=== PATIENT | male | born 1965 | race Caucasian/White ===

== ENCOUNTER 2016-11-22 01:05 | Inpatient (IN) | payer OTHER ==
[~2016-11-22] VITALS: Ht 180.3 cm; Wt 93.9 kg
[2016-11-22] VITALS (7 sets, daily range): BP systolic 126–158
[2016-11-22] MEDS ORDERED: MORPHINE 2 MG/ML INJ. SYRINGE IVP ONE (01:15)
[2016-11-22] MEDS ORDERED: FOLIC ACID 1 MG, THIAMINE HCL 100 MG, MAGNESIUM SULFATE 1 GM, MVI 10 ML in NACL 0.9% 1,... IV ONE (01:15)
[2016-11-22] MEDS ORDERED: ONDANSETRON HCL 4 MG/2 ML VIAL IVP ONE (01:15)
[2016-11-22] MEDS ORDERED: THIAMINE HCL 100 MG/ML VIAL ONE (01:17)
[2016-11-22] MEDS ORDERED: MAGNESIUM SULFATE 1 GM/2 ML VIAL ONE (01:17)
[2016-11-22] MEDS ORDERED: MVI 10 ML VIAL IV ONE (01:17)
[2016-11-22 01:36] LABS: BASOPHILS % (AUTO) 0.7 % (0.0-2.0); EOSINOPHILS # (AUTO) 0.2 K/uL (0.0-0.4); EOSINOPHILS % (AUTO) 3.4 % (0.0-4.0); HEMATOCRIT 48.7 % (36-54); HEMOGLOBIN 15.3 g/dL (14.0-18.0); LYMPHOCYTES # (AUTO) 2.2 K/uL (1.0-5.5); MEAN CORPUSCULAR HEMOGLOBIN 25 pg (27-31); MEAN CORPUSCULAR HGB CONC 31 % (32-36); MEAN CORPUSCULAR VOLUME 80 fL (79.0-98.0); MONOCYTES # (AUTO) 0.5 K/uL (0.0-1.0); MONOCYTES % (AUTO) 7.4 % (1.7-9.3); NEUTROPHILS # (AUTO) 3.5 K/uL (1.8-7.7); NEUTROPHILS % (AUTO) 54.5 % (40.0-70.0); PLATELET COUNT (AUTO) 200 K/uL (130-430); RED BLOOD CELL COUNT(AUTO) 6.13 MIL/uL (4.2-6.2); WHITE BLOOD COUNT (AUTO) 6.4 K/uL (4.8-10.8)
[2016-11-22 02:06] LABS: SODIUM SERUM 128 mmol/L (136-145)
[2016-11-22 02:07] LABS: ANION GAP 11 (5-15); CALCIUM 9.5 mg/dL (8.4-11.0); CHLORIDE 93 mmol/L (98-107); CREATININE 0.75 mg/dL (0.55-1.30); GFR AFRICAN AMERICAN 141 mL/min (>90); GLUCOSE 112 mg/dL (70-99); POTASSIUM 3.8 mmol/L (3.5-5.1); UREA NITROGEN, BLOOD 9 mg/dL (8-21)
[2016-11-22 02:08] LABS: ALANINE AMINOTRANSFERASE 30 U/L (12-78); ALBUMIN 4.2 g/dL (3.4-4.8); ASPARTATE AMINOTRANSFERASE 27 U/L (10-37); TOTAL BILIRUBIN 0.5 mg/dL (0.0-1.0)
[2016-11-22 02:09] LABS: ACETAMINOPHEN < 1 ug/mL (1-30)
[2016-11-22 02:22] LABS: ALCOHOL, BLOOD 208 mg/dL (<10)
[2016-11-22 02:36] LABS: INR 0.9 (0.80-1.20); PROTHROMBIN TIME 9.4 SECS (9.5-12.5)
[2016-11-22 02:41] LABS: BARBITURATE, URINE NEGATIVE (NEG <=200); BENZODIAZEPINE, URINE NEGATIVE (NEG <=150); CANNABINOID, URINE NEGATIVE (NEG <=50); COCAINE, URINE NEGATIVE (NEG <=150); METHAMPHETAMINES SCREEN,URINE NEGATIVE (NEG <=500); OPIATE, URINE POSITIVE (NEG <=100); PHENCYCLIDINE SCREEN,URINE NEGATIVE (NEG <=25); URINE AMPHETAMINE NEGATIVE (NEG <=500); URINE METHADONE NEGATIVE (NEG <=200); URINE OXYCODONE SCREEN NEGATIVE (NEG <=100); URINE PROPOXYPHENE SCREEN NEGATIVE (NEG <=300)
[2016-11-22 02:42] LABS: UR TRICYCLIC ANTIDEPRESSANTS NEGATIVE (NEG <=300)
[2016-11-22] MEDS ORDERED: LORazepam 2 MG/ML VIAL (FOR ER USE) IVP ONE (02:45)
[2016-11-22] MEDS ORDERED: LISI-600 PO (03:00)
[2016-11-22] MEDS ORDERED: FLU VACC QS 2017-18(36MOS+)/PF 0.5 ML/SYR SYRINGE I.M. PRN (04:45)
[2016-11-22] MEDS ORDERED: ACETAMINOPHEN 325 MG TABLET PO PRN (06:00)
[2016-11-22] MEDS ORDERED: ONDANSETRON HCL 4 MG/2 ML VIAL IVP PRN (06:00)
[2016-11-22] MEDS: NACL 0.9% 1,000 ML IV SCH ×2 (06:13→20:42)
[2016-11-22] MEDS: MORPHINE 2 MG/ML INJ. SYRINGE IVP PRN ×4 (06:25→19:00)
[2016-11-22 07:02] LABS: BILIRUBIN,URINE NEGATIVE (NEGATIVE); BLOOD, URINE NEGATIVE (NEGATIVE); CLARITY/URINE CLEAR (CLEAR); COLOR,URINE YELLOW (YELLOW); GLUCOSE,URINE NEGATIVE (NEGATIVE); KETONES,URINE NEGATIVE (NEGATIVE); LEUKOCYTE ESTERASE ,URINE NEGATIVE (NEGATIVE); NITRITE, URINE NEGATIVE (NEGATIVE); PH,URINE 6.5 (5.0-8.0); PROTEIN URINE NEGATIVE (NEGATIVE); UROBILINOGEN,URINE 0.2 (0.2-1.0)
[2016-11-22 07:18] LABS: FREE T4 (FREE THYROXINE) 0.9 ng/dL (0.6-1.6); PHOSPHORUS 4.5 mg/dL (2.7-4.5); THYROID STIMULATING HORMONE 0.84 uIu/mL (0.34-4.82)
[2016-11-22] MEDS: DOCUSATE SODIUM 100 MG CAPSULE PO SCH ×2 (09:45→20:40)
[2016-11-22] MEDS ORDERED: LORazepam 2 MG/ML VIAL IVP PRN (11:45)
[2016-11-22] MEDS: LORazepam 1 MG TABLET PO SCH ×2 (12:15→20:35)
[2016-11-22] MEDS ORDERED: PANTOPRAZOLE SODIUM 40 MG/VIAL (PROTONIX) IVP ONE (12:45)
[2016-11-22 17:06] LABS: BARBITURATE, URINE NEGATIVE (NEG <=200); BENZODIAZEPINE, URINE POSITIVE (NEG <=150); CANNABINOID, URINE NEGATIVE (NEG <=50); COCAINE, URINE NEGATIVE (NEG <=150); METHAMPHETAMINES SCREEN,URINE NEGATIVE (NEG <=500); OPIATE, URINE POSITIVE (NEG <=100); PHENCYCLIDINE SCREEN,URINE NEGATIVE (NEG <=25); UR TRICYCLIC ANTIDEPRESSANTS NEGATIVE (NEG <=300); URINE AMPHETAMINE NEGATIVE (NEG <=500); URINE METHADONE NEGATIVE (NEG <=200); URINE OXYCODONE SCREEN NEGATIVE (NEG <=100); URINE PROPOXYPHENE SCREEN NEGATIVE (NEG <=300)
[2016-11-23] VITALS: BP_SYST 131
[2016-11-23] MEDS: MORPHINE 2 MG/ML INJ. SYRINGE IVP PRN ×2 (00:20→09:25)
[2016-11-23] MEDS: NACL 0.9% 1,000 ML IV SCH (04:40)
[2016-11-23] MEDS: LORazepam 1 MG TABLET PO SCH (04:43)
[2016-11-23 04:44] VITALS: BP_SYST 119
[2016-11-23 06:25] LABS: BASOPHILS % (AUTO) 0.5 % (0.0-2.0); EOSINOPHILS # (AUTO) 0.3 K/uL (0.0-0.4); EOSINOPHILS % (AUTO) 4.6 % (0.0-4.0); HEMATOCRIT 41.5 % (36-54); HEMOGLOBIN 13.7 g/dL (14.0-18.0); LYMPHOCYTES # (AUTO) 1.4 K/uL (1.0-5.5); MEAN CORPUSCULAR HEMOGLOBIN 26 pg (27-31); MEAN CORPUSCULAR HGB CONC 33 % (32-36); MEAN CORPUSCULAR VOLUME 79 fL (79.0-98.0); MONOCYTES # (AUTO) 0.4 K/uL (0.0-1.0); MONOCYTES % (AUTO) 6.4 % (1.7-9.3); NEUTROPHILS # (AUTO) 3.6 K/uL (1.8-7.7); NEUTROPHILS % (AUTO) 64.5 % (40.0-70.0); PLATELET COUNT (AUTO) 153 K/uL (130-430); RED BLOOD CELL COUNT(AUTO) 5.22 MIL/uL (4.2-6.2); RED CELL DISTRIBUTION WIDTH 15.1 % (9.0-15.0); WHITE BLOOD COUNT (AUTO) 5.7 K/uL (4.8-10.8)
[2016-11-23 06:49] LABS: ALBUMIN 3.4 g/dL (3.4-4.8); CALCIUM 9.1 mg/dL (8.4-11.0); CREATININE 0.86 mg/dL (0.55-1.30); TOTAL BILIRUBIN 0.8 mg/dL (0.0-1.0)
[2016-11-23 08:16] LABS: T4 (THYROXINE) 7.2 ug/dL (4.5-12.0)
[2016-11-23] MEDS ORDERED: PANTOPRAZOLE SODIUM 40 MG/VIAL (PROTONIX) IVP SCH (09:00)
[2016-11-23] MEDS ORDERED: LISINOPRIL 20 MG TABLET PO SCH (09:00)
[2016-11-23] MEDS: DOCUSATE SODIUM 100 MG CAPSULE PO SCH (09:13)
[2016-11-23 09:17] VITALS: BP_SYST 113
[2016-11-23] MEDS ORDERED: PRO40 PO (09:35)
[2016-11-23 10:00] LABS: HEMOGLOBIN A1C 5.8 % (4.8-5.6)
[2016-11-23 11:30] VITALS: BP_SYST 133
[2016-11-23 14:08] VITALS: BP_SYST 133
[2016-11-24 07:06] LABS: HEPATITIS A AB, IgM Negative (Negative); HEPATITIS B CORE AB, IgM Negative (Negative); HEPATITIS B SURFACE AG Negative (Negative)
== END 2016-11-23 14:26 | disposition home or self-care (01) | DRG 241 ==
LOC: SED 01:05 → STU 03:30 → SMU 13:12
PROVIDERS: ADMIT Family Medicine; ATTEND Family Medicine
DX: K29.20 Alcoholic gastritis without bleeding (principal); E87.1 Hypo-osmolality and hyponatremia; F10.239 Alcohol dependence with withdrawal, unspecified; K21.9 Gastro-esophageal reflux disease without esophagitis; F10.129 Alcohol abuse with intoxication, unspecified; Y90.9 Presence of alcohol in blood, level not specified; Z79.899 Other long term (current) drug therapy
CPT/HCPCS: 36415; 71010; 74020-TC; 76700-TC; 80053; 80061; 80074; 80307; 81003; 82140-TC; 82150-TC; 83036; 83690-TC; 83735-TC; 83880; 84100-TC; 84436; 84439; 84443-TC; 84479; 85025; 85610-TC; 85730-TC; 93005; 96365; 96366; 96375; 99285; C9113; G0480; G0481; G0482; J2060; J2270; J2405; J3411; J3475; J7030; Q2037

== ENCOUNTER 2017-03-04 19:12 | Inpatient (IN) | payer OTHER ==
[~2017-03-04] VITALS: Ht 185.4 cm; Wt 90.7 kg
[~2017-03-04 19:12] MED LIST: CHLO5CAP3 PO; FAMO20TA8 PO; HYDR-4100 PO; LIB10 PO; LISI-652 PO; MULT PO; NOR10 PO; THIA100T13 PO
[2017-03-04 19:24] VITALS: BP_SYST 149
[2017-03-04 20:24] LABS: CALCIUM 9.1 mg/dL (8.4-11.0); CREATININE 1.06 mg/dL (0.55-1.30)
[2017-03-04 20:25] LABS: BILIRUBIN,URINE NEGATIVE (NEGATIVE); BLOOD, URINE NEGATIVE (NEGATIVE); CLARITY/URINE CLEAR (CLEAR); COLOR,URINE YELLOW (YELLOW); GLUCOSE,URINE NEGATIVE (NEGATIVE); KETONES,URINE NEGATIVE (NEGATIVE); LEUKOCYTE ESTERASE ,URINE NEGATIVE (NEGATIVE); NITRITE, URINE NEGATIVE (NEGATIVE); PH,URINE 5.5 (5.0-8.0); PROTEIN URINE NEGATIVE (NEGATIVE); UROBILINOGEN,URINE 0.2 (0.2-1.0)
[2017-03-04 20:27] LABS: ALBUMIN 4.2 g/dL (3.4-4.8); TOTAL BILIRUBIN 0.2 mg/dL (0.0-1.0)
[2017-03-04 20:29] LABS: BASOPHILS % (AUTO) 0.4 % (0.0-2.0); EOSINOPHILS # (AUTO) 0.2 K/uL (0.0-0.4); EOSINOPHILS % (AUTO) 3.2 % (0.0-4.0); HEMATOCRIT 42.3 % (36-54); HEMOGLOBIN 13.9 g/dL (14.0-18.0); LYMPHOCYTES # (AUTO) 1.8 K/uL (1.0-5.5); LYMPHOCYTES % (AUTO) 28.4 % (20.5-51.5); MEAN CORPUSCULAR HEMOGLOBIN 27 pg (27-31); MEAN CORPUSCULAR HGB CONC 33 % (32-36); MEAN CORPUSCULAR VOLUME 81 fL (79.0-98.0); MONOCYTES # (AUTO) 0.6 K/uL (0.0-1.0); MONOCYTES % (AUTO) 9.4 % (1.7-9.3); NEUTROPHILS # (AUTO) 3.9 K/uL (1.8-7.7); NEUTROPHILS % (AUTO) 58.6 % (40.0-70.0); PLATELET COUNT (AUTO) 216 K/uL (130-430); RED BLOOD CELL COUNT(AUTO) 5.22 MIL/uL (4.2-6.2); RED CELL DISTRIBUTION WIDTH 14.3 % (9.0-15.0); WHITE BLOOD COUNT (AUTO) 6.5 K/uL (4.8-10.8)
[2017-03-04] MEDS ORDERED: NACL 0.9% 1,000 ML IV ONE (20:46)
[2017-03-04] MEDS ORDERED: DIPHENHYDRAMINE INJ 50 MG/ML VIAL IVP ONE (21:00)
[2017-03-04] MEDS ORDERED: ONDANSETRON HCL 4 MG/2 ML VIAL IVP ONE (21:00)
[2017-03-04] MEDS ORDERED: HYDROmorphone 1 MG INJ. 1 MG/ML AMPUL IVP ONE (21:00)
[2017-03-04] MEDS ORDERED: PANTOPRAZOLE SODIUM 40 MG/VIAL (PROTONIX) IVP ONE (21:00)
[2017-03-04 21:02] LABS: LIPASE 366 U/L (73-393)
[2017-03-04 21:06] LABS: INR 0.9 (0.80-1.20); PROTHROMBIN TIME 9.2 SECS (9.5-12.5)
[2017-03-04 21:06] LABS: BARBITURATE, URINE NEGATIVE (NEG <=200); BENZODIAZEPINE, URINE POSITIVE (NEG <=150); CANNABINOID, URINE NEGATIVE (NEG <=50); COCAINE, URINE NEGATIVE (NEG <=150); METHAMPHETAMINES SCREEN,URINE NEGATIVE (NEG <=500); OPIATE, URINE POSITIVE (NEG <=100); PHENCYCLIDINE SCREEN,URINE NEGATIVE (NEG <=25); UR TRICYCLIC ANTIDEPRESSANTS NEGATIVE (NEG <=300); URINE AMPHETAMINE NEGATIVE (NEG <=500); URINE METHADONE NEGATIVE (NEG <=200); URINE OXYCODONE SCREEN NEGATIVE (NEG <=100); URINE PROPOXYPHENE SCREEN NEGATIVE (NEG <=300)
[2017-03-04 21:16] LABS: ALCOHOL, BLOOD 317 mg/dL (<10)
[2017-03-04] MEDS ORDERED: ONDANSETRON HCL 4 MG/2 ML VIAL ONE (21:32)
[2017-03-04] MEDS ORDERED: HYDROmorphone 1 MG INJ. 1 MG/ML AMPUL ONE (21:39)
[2017-03-04] MEDS ORDERED: FOLIC ACID 1 MG, THIAMINE HCL 100 MG, MAGNESIUM SULFATE 1 GM, MVI 10 ML in NACL 0.9% 1,... IV ONE (22:45)
[2017-03-04] MEDS ORDERED: ONDANSETRON HCL 4 MG/2 ML VIAL IVP PRN (22:45)
[2017-03-04] MEDS ORDERED: traMADol HCL HCL 50 MG TABLET (ULTRAM) PO PRN (22:45)
[2017-03-04 23:02] VITALS: BP_SYST 126
[2017-03-04 23:04] VITALS: BP_SYST 126
[2017-03-04] MEDS ORDERED: FOLIC ACID 5 MG/ML VIAL IV ONE (23:25)
[2017-03-04] MEDS ORDERED: MVI 10 ML VIAL IV ONE (23:25)
[2017-03-04] MEDS ORDERED: MAGNESIUM SULFATE 1 GM/2 ML VIAL ONE (23:25)
[2017-03-04] MEDS ORDERED: THIAMINE HCL 100 MG/ML VIAL ONE (23:25)
[2017-03-04] MEDS ORDERED: FAMOTIDINE PF 20 MG/2 ML VIAL IVP ONE (23:30)
[2017-03-04] MEDS: MORPHINE 2 MG/ML INJ. SYRINGE IVP PRN (23:45)
[2017-03-05] MEDS: LORazepam 2 MG/ML VIAL IVP PRN ×6 (03:56→22:48)
[2017-03-05] MEDS: MORPHINE 2 MG/ML INJ. SYRINGE IVP PRN ×5 (04:02→22:15)
[2017-03-05 06:26] LABS: BASOPHILS % (AUTO) 0.8 % (0.0-2.0); EOSINOPHILS # (AUTO) 0.2 K/uL (0.0-0.4); EOSINOPHILS % (AUTO) 4.8 % (0.0-4.0); HEMATOCRIT 37.4 % (36-54); HEMOGLOBIN 12.2 g/dL (14.0-18.0); LYMPHOCYTES # (AUTO) 1.9 K/uL (1.0-5.5); MEAN CORPUSCULAR HEMOGLOBIN 27 pg (27-31); MEAN CORPUSCULAR HGB CONC 33 % (32-36); MEAN CORPUSCULAR VOLUME 82 fL (79.0-98.0); MONOCYTES # (AUTO) 0.4 K/uL (0.0-1.0); MONOCYTES % (AUTO) 8.7 % (1.7-9.3); NEUTROPHILS # (AUTO) 1.6 K/uL (1.8-7.7); NEUTROPHILS % (AUTO) 39.7 % (40.0-70.0); PLATELET COUNT (AUTO) 160 K/uL (130-430); RED BLOOD CELL COUNT(AUTO) 4.56 MIL/uL (4.2-6.2); RED CELL DISTRIBUTION WIDTH 14.2 % (9.0-15.0); WHITE BLOOD COUNT (AUTO) 4.1 K/uL (4.8-10.8)
[2017-03-05 07:03] LABS: ALBUMIN 3.4 g/dL (3.4-4.8); CALCIUM 8.4 mg/dL (8.4-11.0); CREATININE 0.68 mg/dL (0.55-1.30); POTASSIUM 3.7 mmol/L (3.5-5.1); TOTAL BILIRUBIN 0.2 mg/dL (0.0-1.0)
[2017-03-05 08:58] VITALS: BP_SYST 152
[2017-03-05] MEDS ORDERED: HYDROcodone/ACETAMIN 10-325 MG TAB PO PRN (12:45)
[2017-03-05 12:59] VITALS: BP_SYST 143
[2017-03-05] MEDS ORDERED: amLODIPine BESYLATE 10 MG TABLET PO ONE (13:00)
[2017-03-05] MEDS: chlordiazePOXIDE HCL 10 MG CAPSULE PO SCH ×3 (15:00→20:21)
[2017-03-05 15:17] VITALS: BP_SYST 153
[2017-03-05 20:00] VITALS: BP_SYST 147
[2017-03-05] MEDS ORDERED: FAMOTIDINE PF 20 MG/2 ML VIAL IVP SCH (21:00)
[2017-03-06 00:48] VITALS: BP_SYST 142
[2017-03-06] MEDS: LORazepam 2 MG/ML VIAL IVP PRN ×7 (02:01→23:45)
[2017-03-06] MEDS: MORPHINE 2 MG/ML INJ. SYRINGE IVP PRN ×5 (02:02→21:26)
[2017-03-06 06:14] LABS: EOSINOPHILS # (AUTO) 0.3 K/uL (0.0-0.4); EOSINOPHILS % (AUTO) 6.2 % (0.0-4.0); HEMOGLOBIN 13.6 g/dL (14.0-18.0); LYMPHOCYTES # (AUTO) 1.6 K/uL (1.0-5.5); LYMPHOCYTES % (AUTO) 33.5 % (20.5-51.5); MEAN CORPUSCULAR HEMOGLOBIN 27 pg (27-31); MEAN CORPUSCULAR HGB CONC 33 % (32-36); MEAN CORPUSCULAR VOLUME 81 fL (79.0-98.0); MONOCYTES # (AUTO) 0.4 K/uL (0.0-1.0); MONOCYTES % (AUTO) 8.6 % (1.7-9.3); NEUTROPHILS # (AUTO) 2.5 K/uL (1.8-7.7); NEUTROPHILS % (AUTO) 50.7 % (40.0-70.0); PLATELET COUNT (AUTO) 169 K/uL (130-430); RED BLOOD CELL COUNT(AUTO) 5.04 MIL/uL (4.2-6.2); RED CELL DISTRIBUTION WIDTH 13.6 % (9.0-15.0); WHITE BLOOD COUNT (AUTO) 4.8 K/uL (4.8-10.8)
[2017-03-06 06:21] LABS: ALBUMIN 3.6 g/dL (3.4-4.8); CALCIUM 9.2 mg/dL (8.4-11.0); CREATININE 0.82 mg/dL (0.55-1.30); POTASSIUM 3.7 mmol/L (3.5-5.1); TOTAL BILIRUBIN 0.6 mg/dL (0.0-1.0)
[2017-03-06 08:39] VITALS: BP_SYST 146
[2017-03-06] MEDS: THIAMINE HCL 100 MG TABLET PO SCH (08:44)
[2017-03-06] MEDS: LISINOPRIL 5 MG TABLET PO SCH (08:44)
[2017-03-06] MEDS: chlordiazePOXIDE HCL 10 MG CAPSULE PO SCH ×4 (08:45→20:28)
[2017-03-06] MEDS: MULTIVITAMINS TAB 1 TABLET PO SCH (08:45)
[2017-03-06] MEDS: PANTOPRAZOLE SODIUM 40 MG TAB PO SCH (08:45)
[2017-03-06] MEDS: amLODIPine BESYLATE 10 MG TABLET PO SCH (08:45)
[2017-03-06 12:18] VITALS: BP_SYST 135
[2017-03-06 16:24] VITALS: BP_SYST 133
[2017-03-06 20:07] VITALS: BP_SYST 111
[2017-03-07 00:02] VITALS: BP_SYST 105
[2017-03-07] MEDS: LORazepam 2 MG/ML VIAL IVP PRN ×2 (05:23→08:42)
[2017-03-07] MEDS: MORPHINE 2 MG/ML INJ. SYRINGE IVP PRN (05:24)
[2017-03-07 08:04] VITALS: BP_SYST 107
[2017-03-07] MEDS: PANTOPRAZOLE SODIUM 40 MG TAB PO SCH (08:32)
[2017-03-07] MEDS: THIAMINE HCL 100 MG TABLET PO SCH (08:33)
[2017-03-07] MEDS: MULTIVITAMINS TAB 1 TABLET PO SCH (08:33)
[2017-03-07] MEDS: LISINOPRIL 5 MG TABLET PO SCH (08:34)
[2017-03-07] MEDS: amLODIPine BESYLATE 10 MG TABLET PO SCH (08:35)
[2017-03-07] MEDS: chlordiazePOXIDE HCL 10 MG CAPSULE PO SCH ×2 (09:00→15:00)
[2017-03-07 12:31] VITALS: BP_SYST 111
[2017-03-07 15:28] VITALS: BP_SYST 115
[2017-03-07 17:27] VITALS: BP_SYST 115
== END 2017-03-07 17:58 | disposition home or self-care (01) | DRG 241 ==
LOC: SED 19:12 → STU 22:38 → SMU 03-06 15:57
PROVIDERS: ADMIT Internal Medicine; ATTEND Internal Medicine
DX: K29.20 Alcoholic gastritis without bleeding (principal); I10 Essential (primary) hypertension; F32.9 Major depressive disorder, single episode, unspecified; F41.9 Anxiety disorder, unspecified; F10.229 Alcohol dependence with intoxication, unspecified; Z59.0 Homelessness; Z79.899 Other long term (current) drug therapy
CPT/HCPCS: 36415; 80053; 80307; 81003; 82150-TC; 83605; 83690-TC; 85025; 85610-TC; 87040-TC; 87081; 96361; 96374; 96375; 99285; C9113; G0482; J1170; J1200; J2060; J2270; J2405; J3411; J3475; J3490; J7030

== ENCOUNTER 2018-06-11 20:16 | Emergency (ER) | payer MEDICAID ==
[~2018-06-11] VITALS: Ht 180.3 cm; Wt 92.5 kg
[~2018-06-11 20:16] MED LIST changes: -CHLO5CAP3 PO; -FAMO20TA8 PO; +FOLI-43 PO; -HYDR-4100 PO; +LISI-600 PO; -LISI-652 PO; -MULT PO; -NOR10 PO; +PRO40 PO
--- NOTE | 2018-06-11 20:29 | NUR ---
Patient to ER bed 6 to gown for evaluation. Side rails up.
--- NOTE | 2018-06-11 20:30 | NUR ---
Patient arrived from home aaox4 and able to verbalize his needs. Complaints of right upper quadrant abdominal pain radiating up to his right jaw. Complaints of N/V and anxiety. Patient states he's been drinking about 30 beer cans a day for the past 4 weeks. Able to ambulate with a steady gait.
[2018-06-11] MEDS ORDERED: NACL 0.9% 1,000 ML IV ONE ×2 (20:46→22:45)
[2018-06-11 20:49] VITALS: BP_SYST 150
--- NOTE | 2018-06-11 20:50 | NUR ---
ER at bedside examining patient.
[2018-06-11] MEDS ORDERED: LORazepam 2 MG/ML VIAL (FOR ER USE) IVP ONE (21:00)
[2018-06-11] MEDS ORDERED: MORPHINE 4 MG/ML INJ. SYRINGE IM ONE (21:00)
[2018-06-11] MEDS ORDERED: ONDANSETRON HCL 4 MG/2 ML VIAL IVP ONE (21:00)
--- NOTE | 2018-06-11 21:05 | NUR ---
# 20 gauge angiocath placed to LEFT AC. Use of asceptic technique. Opsite placed over site. Blood return noted. Blood for lab drawn from site. Flushed with 10 cc of normal saline. No evidence of infiltration noted. Patient tolerated well.
--- NOTE | 2018-06-11 21:15 | NUR ---
Urine specimen collected and sent to lab
[2018-06-11 21:25] LABS: BILIRUBIN,URINE NEGATIVE (NEGATIVE); BLOOD, URINE NEGATIVE (NEGATIVE); CLARITY/URINE CLEAR (CLEAR); COLOR,URINE YELLOW (YELLOW); GLUCOSE,URINE NEGATIVE (NEGATIVE); KETONES,URINE NEGATIVE (NEGATIVE); LEUKOCYTE ESTERASE ,URINE NEGATIVE (NEGATIVE); NITRITE, URINE NEGATIVE (NEGATIVE); PROTEIN URINE NEGATIVE (NEGATIVE); UROBILINOGEN,URINE 0.2 (0.2-1.0)
[2018-06-11 21:27] LABS: BASOPHILS # (AUTO) 0.1 K/uL (0.0-0.2); BASOPHILS % (AUTO) 1.3 % (0.0-2.0); EOSINOPHILS # (AUTO) 0.1 K/uL (0.0-0.4); EOSINOPHILS % (AUTO) 1.4 % (0.0-4.0); HEMOGLOBIN 14.1 g/dL (14.0-18.0); LYMPHOCYTES # (AUTO) 1.2 K/uL (1.0-5.5); LYMPHOCYTES % (AUTO) 27.4 % (20.5-51.5); MEAN CORPUSCULAR HEMOGLOBIN 27 pg (27-31); MEAN CORPUSCULAR HGB CONC 33 % (32-36); MEAN CORPUSCULAR VOLUME 82 fL (79.0-98.0); MONOCYTES # (AUTO) 0.6 K/uL (0.0-1.0); NEUTROPHILS # (AUTO) 2.3 K/uL (1.8-7.7); NEUTROPHILS % (AUTO) 54.9 % (40.0-70.0); PLATELET COUNT (AUTO) 213 K/uL (130-430); RED BLOOD CELL COUNT(AUTO) 5.24 MIL/uL (4.2-6.2); RED CELL DISTRIBUTION WIDTH 14.7 % (9.0-15.0); WHITE BLOOD COUNT (AUTO) 4.3 K/uL (4.8-10.8)
[2018-06-11 21:31] LABS: CALCIUM 8.9 mg/dL (8.4-11.0); CREATININE 0.79 mg/dL (0.55-1.30); POTASSIUM 3.6 mmol/L (3.5-5.1)
[2018-06-11 21:35] LABS: BARBITURATE, URINE NEGATIVE (NEG <=200); BENZODIAZEPINE, URINE POSITIVE (NEG <=150); CANNABINOID, URINE NEGATIVE (NEG <=50); COCAINE, URINE NEGATIVE (NEG <=150); METHAMPHETAMINES SCREEN,URINE NEGATIVE (NEG <=500); OPIATE, URINE NEGATIVE (NEG <=100); PHENCYCLIDINE SCREEN,URINE NEGATIVE (NEG <=25); UR TRICYCLIC ANTIDEPRESSANTS NEGATIVE (NEG <=300); URINE AMPHETAMINE NEGATIVE (NEG <=500); URINE METHADONE NEGATIVE (NEG <=200); URINE OXYCODONE SCREEN NEGATIVE (NEG <=100); URINE PROPOXYPHENE SCREEN NEGATIVE (NEG <=300)
[2018-06-11 21:35] LABS: ALBUMIN 3.7 g/dL (3.4-4.8); TOTAL BILIRUBIN 0.5 mg/dL (0.0-1.0)
--- NOTE | 2018-06-11 21:49 | NUR ---
Patient is asleep in bed. Cardiac monitoring is active.
[2018-06-12] MEDS ORDERED: LORazepam 2 MG/ML VIAL (FOR ER USE) IVP ONE (02:30)
--- NOTE | 2018-06-12 02:47 | NUR ---
0247 - Pt gave name of sister for contact to pick him up. Chani Edwards [phone]
--- NOTE | 2018-06-12 03:10 | NUR ---
Patients sister (Chain) [phone], but no answer. Voicemail left for return call.
--- NOTE | 2018-06-12 03:30 | NUR ---
Patients sister called but no answer. Message left.
--- NOTE | 2018-06-12 03:57 | NUR ---
Patient in bed asleep. Easily awoken. No appearance of pain or respiratory distress.
--- NOTE | 2018-06-12 04:38 | NUR ---
0438 - Called pt's sister again, no answer.
--- NOTE | 2018-06-12 06:08 | NUR ---
0608 - Patient given written and verbal discharge instructions and verbalizes understanding. ER MD discussed with patient the results and treatment provided. Patient in stable condition. ID arm band removed. IV catheter removed intact and dressing applied, no active bleeding. Rx of librium given. Patient educated on pain management and to follow up with PMD. Pain Scale 4. Opportunity for questions provided and answered. Medication side effect fact sheet provided.
[2018-06-12 06:11] VITALS: BP_SYST 148
== END 2018-06-12 06:08 | disposition home or self-care (01) ==
LOC: SED 20:16
DX: F10.129 Alcohol abuse with intoxication, unspecified (principal); I10 Essential (primary) hypertension; F41.9 Anxiety disorder, unspecified; Z79.899 Other long term (current) drug therapy; Y90.7 Blood alcohol level of 200-239 mg/100 ml
CPT/HCPCS: 36415; 80053; 80307; 81003; 82150; 83690; 85025; 85730; 96361; 96372; 96374; 96375; 96376; 99284; G0482; J2060 ×2; J2270; J2405; J7030

== ENCOUNTER 2018-06-13 13:16 | Emergency (ER) | payer MEDICAID ==
[~2018-06-13] VITALS: Ht 180.3 cm; Wt 92.5 kg
[2018-06-13 13:30] VITALS: BP_SYST 164
[2018-06-13] MEDS ORDERED: ONDANSETRON HCL 4 MG/2 ML VIAL IVP ONE (13:45)
[2018-06-13] MEDS ORDERED: NACL 0.9% 1,000 ML IV ONE (13:45)
[2018-06-13] MEDS ORDERED: PANTOPRAZOLE SODIUM 40 MG/VIAL (PROTONIX) IVP ONE (13:45)
[2018-06-13 13:57] LABS: BILIRUBIN,URINE NEGATIVE (NEGATIVE); BLOOD, URINE NEGATIVE (NEGATIVE); CLARITY/URINE SL HAZY (CLEAR); COLOR,URINE YELLOW (YELLOW); GLUCOSE,URINE NEGATIVE (NEGATIVE); KETONES,URINE NEGATIVE (NEGATIVE); LEUKOCYTE ESTERASE ,URINE NEGATIVE (NEGATIVE); NITRITE, URINE NEGATIVE (NEGATIVE); PH,URINE 6.5 (5.0-8.0); PROTEIN URINE NEGATIVE (NEGATIVE); UROBILINOGEN,URINE 0.2 (0.2-1.0)
[2018-06-13 14:04] LABS: BASOPHILS % (AUTO) 0.7 % (0.0-2.0); EOSINOPHILS # (AUTO) 0.1 K/uL (0.0-0.4); EOSINOPHILS % (AUTO) 1.9 % (0.0-4.0); HEMATOCRIT 41.6 % (36-54); HEMOGLOBIN 13.8 g/dL (14.0-18.0); LYMPHOCYTES # (AUTO) 1.1 K/uL (1.0-5.5); LYMPHOCYTES % (AUTO) 23.3 % (20.5-51.5); MEAN CORPUSCULAR HEMOGLOBIN 27 pg (27-31); MEAN CORPUSCULAR HGB CONC 33 % (32-36); MEAN CORPUSCULAR VOLUME 82 fL (79.0-98.0); MONOCYTES # (AUTO) 0.5 K/uL (0.0-1.0); MONOCYTES % (AUTO) 10.9 % (1.7-9.3); NEUTROPHILS % (AUTO) 63.2 % (40.0-70.0); PLATELET COUNT (AUTO) 203 K/uL (130-430); RED BLOOD CELL COUNT(AUTO) 5.08 MIL/uL (4.2-6.2); RED CELL DISTRIBUTION WIDTH 14.4 % (9.0-15.0); WHITE BLOOD COUNT (AUTO) 4.7 K/uL (4.8-10.8)
[2018-06-13 14:15] LABS: CALCIUM 8.6 mg/dL (8.4-11.0); CREATININE 0.81 mg/dL (0.55-1.30); POTASSIUM 3.6 mmol/L (3.5-5.1)
[2018-06-13 14:27] LABS: PROTHROMBIN TIME 10.2 SECS (9.5-12.5)
[2018-06-13 14:30] LABS: ALBUMIN 3.4 g/dL (3.4-4.8); TOTAL BILIRUBIN 0.4 mg/dL (0.0-1.0)
[2018-06-13] MEDS ORDERED: LORazepam 2 MG/ML VIAL (FOR ER USE) IVP ONE (14:45)
[2018-06-13 17:50] VITALS: BP_SYST 155
== END 2018-06-13 17:50 | disposition home or self-care (01) ==
LOC: SED 13:16
DX: K29.70 Gastritis, unspecified, without bleeding (principal); F10.10 Alcohol abuse, uncomplicated; R51 Headache; I10 Essential (primary) hypertension; F41.9 Anxiety disorder, unspecified; Z79.899 Other long term (current) drug therapy
CPT/HCPCS: 36415; 74176; 80053; 81003; 82150; 83605; 83615; 83690; 85025; 85610; 85730; 96361; 96374; 96375; 99284; C9113; J2060; J2405; J7030

== ENCOUNTER 2018-09-19 21:05 | Emergency (ER) | payer MEDICAID ==
[~2018-09-19] VITALS: Ht 180.3 cm; Wt 91.6 kg
[~2018-09-19 21:05] MED LIST changes: -FOLI-43 PO; -LIB10 PO; -PRO40 PO; -THIA100T13 PO
[2018-09-19 21:13] VITALS: BP_SYST 135
[2018-09-19 21:38] LABS: BASOPHILS # (AUTO) 0.1 K/uL (0.0-0.2); BASOPHILS % (AUTO) 1.8 % (0.0-2.0); EOSINOPHILS # (AUTO) 0.1 K/uL (0.0-0.4); EOSINOPHILS % (AUTO) 1.2 % (0.0-4.0); HEMATOCRIT 44.2 % (36-54); HEMOGLOBIN 14.7 g/dL (14.0-18.0); LYMPHOCYTES # (AUTO) 1.5 K/uL (1.0-5.5); LYMPHOCYTES % (AUTO) 35.1 % (20.5-51.5); MEAN CORPUSCULAR HEMOGLOBIN 27 pg (27-31); MEAN CORPUSCULAR HGB CONC 33 % (32-36); MEAN CORPUSCULAR VOLUME 82 fL (79.0-98.0); MONOCYTES # (AUTO) 0.4 K/uL (0.0-1.0); NEUTROPHILS # (AUTO) 2.2 K/uL (1.8-7.7); NEUTROPHILS % (AUTO) 52.9 % (40.0-70.0); PLATELET COUNT (AUTO) 232 K/uL (130-430); RED BLOOD CELL COUNT(AUTO) 5.37 MIL/uL (4.2-6.2); RED CELL DISTRIBUTION WIDTH 14.9 % (9.0-15.0); WHITE BLOOD COUNT (AUTO) 4.2 K/uL (4.8-10.8)
[2018-09-19 21:51] LABS: CALCIUM 9.2 mg/dL (8.4-11.0); CREATININE 0.95 mg/dL (0.55-1.30); POTASSIUM 4.5 mmol/L (3.5-5.1)
[2018-09-19 21:57] LABS: TOTAL BILIRUBIN 0.3 mg/dL (0.0-1.0)
== END 2018-09-20 01:59 | disposition left against medical advice (07) ==
LOC: SED 21:05
DX: F10.129 Alcohol abuse with intoxication, unspecified (principal); R10.9 Unspecified abdominal pain; R11.2 Nausea with vomiting, unspecified; Z53.21 Procedure and treatment not carried out due to patient leaving prior to being seen by health care provider
CPT/HCPCS: 36415; 80053; 83690; 85025; 99281; G0482

== ENCOUNTER 2018-10-28 20:00 | Emergency (ER) | payer MEDICAID ==
[~2018-10-28] VITALS: Ht 162.6 cm; Wt 93.0 kg
[2018-10-28 20:02] VITALS: BP_SYST 152
--- NOTE | 2018-10-28 20:03 | NUR ---
Placed in room 7 . Placed on sales operations assistant, blood pressure machine and pulse oximeter. To gown for exam. Side rails up. Report given to carlos WHITE.
--- NOTE | 2018-10-28 20:07 | NUR ---
Patient brought in complaining of diffuse abdominal pain worsening over the last 3 days with nausea. Patient reports binge drinking 40 beers today. Pain 10/10. Hx of pancreatitis. No other complaints/injuries per patient or as noted. Will continue to monitor.
[2018-10-28] MEDS ORDERED: ONDANSETRON HCL 4 MG/2 ML VIAL IVP ONE (20:15)
[2018-10-28] MEDS ORDERED: NACL 0.9% 1,000 ML IV ONE (20:15)
[2018-10-28] MEDS ORDERED: KETOROLAC TROMETHAMINE 30 MG VIAL IVP ONE (20:45)
[2018-10-28] MEDS ORDERED: MORPHINE 2 MG/ML INJ. SYRINGE IVP ONE (20:45)
[2018-10-28 20:49] LABS: BASOPHILS # (AUTO) 0.1 K/uL (0.0-0.2); BASOPHILS % (AUTO) 1.8 % (0.0-2.0); EOSINOPHILS # (AUTO) 0.1 K/uL (0.0-0.4); EOSINOPHILS % (AUTO) 3.6 % (0.0-4.0); HEMATOCRIT 43.6 % (36-54); HEMOGLOBIN 14.6 g/dL (14.0-18.0); LYMPHOCYTES # (AUTO) 1.5 K/uL (1.0-5.5); LYMPHOCYTES % (AUTO) 38.1 % (20.5-51.5); MEAN CORPUSCULAR HEMOGLOBIN 27 pg (27-31); MEAN CORPUSCULAR HGB CONC 34 % (32-36); MEAN CORPUSCULAR VOLUME 82 fL (79.0-98.0); MONOCYTES # (AUTO) 0.5 K/uL (0.0-1.0); MONOCYTES % (AUTO) 13.1 % (1.7-9.3); NEUTROPHILS # (AUTO) 1.8 K/uL (1.8-7.7); NEUTROPHILS % (AUTO) 43.4 % (40.0-70.0); PLATELET COUNT (AUTO) 225 K/uL (130-430); RED BLOOD CELL COUNT(AUTO) 5.33 MIL/uL (4.2-6.2); RED CELL DISTRIBUTION WIDTH 16.1 % (9.0-15.0)
--- NOTE | 2018-10-28 20:50 | NUR ---
patient getting out of bed. patient told to lay back down.
--- NOTE | 2018-10-28 20:50 | NUR ---
Medicated per MD orders.
[2018-10-28 20:53] LABS: ANION GAP 11 (5-15); CHLORIDE 104 mmol/L (98-107); CREATININE 0.68 mg/dL (0.55-1.30); GLUCOSE 117 mg/dL (70-99); POTASSIUM 3.8 mmol/L (3.5-5.1); SODIUM SERUM 143 mmol/L (136-145); UREA NITROGEN, BLOOD 6 mg/dL (8-21)
[2018-10-28 20:58] LABS: GFR AFRICAN AMERICAN 157 mL/min (>90)
[2018-10-28 21:00] LABS: ALANINE AMINOTRANSFERASE 27 U/L (12-78); ALCOHOL, BLOOD 342 mg/dL (<10); ASPARTATE AMINOTRANSFERASE 24 U/L (10-37); LIPASE 406 U/L (73-393)
[2018-10-28 21:12] LABS: TOTAL BILIRUBIN < 0.1 mg/dL (0.0-1.0)
--- NOTE | 2018-10-28 21:35 | NUR ---
Patient states he is very anxious and he is in a lot of pain. Patient is requesting Benzodiazepenes. Dr. Read at bedside explaining why patient can not have that particular medication at this time due to patient's high LUIS. Patient continues to get agitated. MD states he will give him ketamine for pain.
--- NOTE | 2018-10-28 22:00 | NUR ---
patient getting out of bed. patient stated "I'm calling [employer], I want to get out of here." reeducated patient on blood alcohol level and the need for resting it off. notified.
[2018-10-28] MEDS ORDERED: BANANA BAG 1 EA, MVI 10 ML, THIAMINE HCL 100 MG, FOLIC ACID 1 MG, MAGNESIUM SULFATE 1 G... IV ONE ×5 (22:15)
[2018-10-28] MEDS ORDERED: KETAMINE 30 MG/3 ML SYRINGE IVP ONE (22:15)
--- NOTE | 2018-10-28 22:23 | NUR ---
MD Read at bedside for IVP Ketamine for pain management. Patient placed on search engine marketing strategist. VSS Stable 145/95 BP; 99% on 4L NC; 102 HR; and RR 20. Patient stating, "Where am I?" Patient reassured he is in the hospital, and we are taking care of him.
--- NOTE | 2018-10-28 23:00 | NUR ---
Patient agitated at sitting at edge of bed. Patient states that he called [employer] to pick him up.
--- NOTE | 2018-10-28 23:00 | NUR ---
patient found at the end of bed. patient states he wants something for the pain. instructed patient to sit back into bed and try to relax.
[2018-10-28 23:03] LABS: BILIRUBIN,URINE NEGATIVE (NEGATIVE); BLOOD, URINE NEGATIVE (NEGATIVE); CLARITY/URINE CLEAR (CLEAR); COLOR,URINE YELLOW (YELLOW); GLUCOSE,URINE NEGATIVE (NEGATIVE); KETONES,URINE NEGATIVE (NEGATIVE); LEUKOCYTE ESTERASE ,URINE NEGATIVE (NEGATIVE); NITRITE, URINE NEGATIVE (NEGATIVE); PROTEIN URINE NEGATIVE (NEGATIVE); UROBILINOGEN,URINE 0.2 (0.2-1.0)
--- NOTE | 2018-10-28 23:12 | NUR ---
Patient pulled out IV. Walking with steady gait. Security called and followed patient out of ED.
--- NOTE | 2018-10-28 23:16 | NUR ---
[employer]'s department called informed patient eloped from ED and drove himself out of parking lot in mello sedan. KENDALL will send patrol in direction of Patient. Ty, fiber optics supervisor, also notified.
--- NOTE | 2018-10-28 23:19 | NUR ---
Richmond spencer in EDM - 10/28/18 at 2323 by [email or web address] Patient pulled out IV. Walking with steady gait. Security called and followed patient out of ED.
[2018-10-28] MEDS ORDERED: THIAMINE HCL 100 MG/ML VIAL ONE (23:29)
[2018-10-28] MEDS ORDERED: FOLIC ACID 5 MG/ML VIAL IV ONE (23:30)
== END 2018-10-28 23:16 | disposition left against medical advice (07) ==
LOC: SED 20:00
DX: F10.129 Alcohol abuse with intoxication, unspecified (principal); R10.13 Epigastric pain; F41.9 Anxiety disorder, unspecified; I10 Essential (primary) hypertension; Z53.20 Procedure and treatment not carried out because of patient's decision for unspecified reasons; Y90.8 Blood alcohol level of 240 mg/100 ml or more
CPT/HCPCS: 36415; 80053; 81003; 83690; 85025; 96361; 96374; 96375; 99283; G0482; J1885; J2270; J2405; J3411; J3475; J3490; J7030

== ENCOUNTER 2019-10-10 14:24 | Emergency (ER) | payer MEDICAID ==
[~2019-10-10] VITALS: Ht 175.3 cm; Wt 81.6 kg
[2019-10-10 14:24] VITALS: BP_SYST 157
[2019-10-10] MEDS ORDERED: METOCLOPRAMIDE HCL 10 MG/2 ML VIAL IVP ONE (14:45)
[2019-10-10] MEDS ORDERED: MAG-AL HYDROX/SIMETH 30 ML UDC PO ONE (14:45)
[2019-10-10] MEDS ORDERED: NACL 0.9% 1,000 ML IV ONE (15:00)
[2019-10-10 15:11] LABS: BASOPHILS % (AUTO) 0.7 % (0.0-2.0); EOSINOPHILS # (AUTO) 0.1 K/uL (0.0-0.4); HEMATOCRIT 43.8 % (36-54); MONOCYTES # (AUTO) 0.6 K/uL (0.0-1.0); NEUTROPHILS # (AUTO) 2.5 K/uL (1.8-7.7); WHITE BLOOD COUNT (AUTO) 4.3 K/uL (4.8-10.8)
[2019-10-10 15:13] LABS: EOSINOPHILS % (AUTO) 3.4 % (0.0-4.0); HEMOGLOBIN 14.5 g/dL (14.0-18.0); LYMPHOCYTES % (AUTO) 23.8 % (20.5-51.5); MEAN CORPUSCULAR HEMOGLOBIN 28 pg (27-31); MEAN CORPUSCULAR HGB CONC 33 % (32-36); MEAN CORPUSCULAR VOLUME 84 fL (79.0-98.0); MONOCYTES % (AUTO) 13.6 % (1.7-9.3); NEUTROPHILS % (AUTO) 58.5 % (40.0-70.0); PLATELET COUNT (AUTO) 190 K/uL (130-430); RED BLOOD CELL COUNT(AUTO) 5.23 MIL/uL (4.2-6.2); RED CELL DISTRIBUTION WIDTH 16.8 % (9.0-15.0)
[2019-10-10 15:58] LABS: POTASSIUM 3.8 mmol/L (3.5-5.1)
[2019-10-10 15:59] LABS: CREATININE 0.78 mg/dL (0.55-1.30)
[2019-10-10 16:00] LABS: ALBUMIN 4.2 g/dL (3.4-4.8); TOTAL BILIRUBIN 0.2 mg/dL (0.0-1.0)
[2019-10-10] MEDS ORDERED: LORazepam 2 MG/ML VIAL IVP ONE (16:15)
[2019-10-10 16:26] LABS: BARBITURATE, URINE NEGATIVE (NEG <=200); BENZODIAZEPINE, URINE POSITIVE (NEG <=150); CANNABINOID, URINE NEGATIVE (NEG <=50); COCAINE, URINE NEGATIVE (NEG <=150); METHAMPHETAMINES SCREEN,URINE NEGATIVE (NEG <=500); OPIATE, URINE NEGATIVE (NEG <=100); PHENCYCLIDINE SCREEN,URINE NEGATIVE (NEG <=25); UR TRICYCLIC ANTIDEPRESSANTS NEGATIVE (NEG <=300); URINE AMPHETAMINE NEGATIVE (NEG <=500); URINE METHADONE NEGATIVE (NEG <=200); URINE OXYCODONE SCREEN NEGATIVE (NEG <=100); URINE PROPOXYPHENE SCREEN NEGATIVE (NEG <=300)
[2019-10-10 18:31] VITALS: BP_SYST 112
== END 2019-10-10 18:30 | disposition home or self-care (01) ==
LOC: SED 14:24
DX: F10.129 Alcohol abuse with intoxication, unspecified (principal); I10 Essential (primary) hypertension; F41.9 Anxiety disorder, unspecified; Y90.8 Blood alcohol level of 240 mg/100 ml or more
CPT/HCPCS: 36415; 80053; 80307; 83690; 85025; 93005; 96374; 96375; 99284; G0482; J7030; J2060; J2765

== ENCOUNTER 2019-10-11 18:01 | Emergency (ER) | payer MEDICAID ==
[~2019-10-11] VITALS: Ht 177.8 cm; Wt 95.3 kg
[2019-10-11 18:17] VITALS: BP_SYST 153
--- NOTE | 2019-10-11 19:01 | NUR ---
Per gas usage meter clerk, pt LWBS.
[2019-10-11] MEDS ORDERED: NACL 0.9% 1,000 ML IV ONE (20:00)
== END 2019-10-11 19:01 | disposition left against medical advice (07) ==
LOC: SED 18:01
DX: R10.9 Unspecified abdominal pain (principal); Z53.21 Procedure and treatment not carried out due to patient leaving prior to being seen by health care provider

== ENCOUNTER 2020-09-05 22:03 | Emergency (ER) | payer MEDICAID ==
[~2020-09-05] VITALS: Ht 177.8 cm; Wt 99.8 kg
[~2020-09-05 22:03] MED LIST changes: -LISI-600 PO; +LISI20TA30 PO
[2020-09-05 22:10] VITALS: BP_SYST 165
--- NOTE | 2020-09-05 22:10 | NUR ---
Patient to ER bed 4 to gown for evaluation. Side rails up. Report given to Mary Grace WHITE.
--- NOTE | 2020-09-05 22:12 | NUR ---
Patient BIB by family from home. C/O abdominal pain x today. Patient had abdominal pain for 10 hours ETA. Hx pancreatitis. Patient states " I drink alcohol to help my pain go away. " A/O,X4, Epigastric pain, pain rate 10/10.
--- NOTE | 2020-09-05 22:21 | NUR ---
ER Dr. Figueroa at bedside examining patient.
[2020-09-05] MEDS ORDERED: NACL 0.9% 1,000 ML IV ONE (22:30)
[2020-09-05] MEDS ORDERED: KETOROLAC TROMETHAMINE 30 MG VIAL IVP ONE (22:30)
[2020-09-05] MEDS ORDERED: KETOROLAC TROMETHAMINE 30 MG VIAL ONE (22:33)
--- NOTE | 2020-09-05 22:40 | NUR ---
# 20 gauge angiocath placed to LAC. Use of asceptic technique. Opsite placed over site. Blood return noted. Blood for lab drawn from site. Flushed with 10 cc of normal saline. No evidence of infiltration noted. Patient tolerated well.
[2020-09-05 22:48] LABS: BASOPHILS # (AUTO) 0.1 K/uL (0.0-0.2); BASOPHILS % (AUTO) 1.2 % (0.0-2.0); EOSINOPHILS # (AUTO) 0.2 K/uL (0.0-0.4); EOSINOPHILS % (AUTO) 3.6 % (0.0-4.0); HEMOGLOBIN 15.7 g/dL (14.0-18.0); LYMPHOCYTES # (AUTO) 1.7 K/uL (1.0-5.5); LYMPHOCYTES % (AUTO) 36.8 % (20.5-51.5); MEAN CORPUSCULAR HEMOGLOBIN 27 pg (27-31); MEAN CORPUSCULAR HGB CONC 34 % (32-36); MEAN CORPUSCULAR VOLUME 80 fL (79.0-98.0); MONOCYTES # (AUTO) 0.8 K/uL (0.0-1.0); NEUTROPHILS # (AUTO) 1.9 K/uL (1.8-7.7); NEUTROPHILS % (AUTO) 41.4 % (40.0-70.0); PLATELET COUNT (AUTO) 192 K/uL (130-430); RED BLOOD CELL COUNT(AUTO) 5.79 MIL/uL (4.2-6.2); RED CELL DISTRIBUTION WIDTH 14.6 % (9.0-15.0); WHITE BLOOD COUNT (AUTO) 4.7 K/uL (4.8-10.8)
[2020-09-05 22:55] LABS: CALCIUM 8.7 mg/dL (8.4-11.0); CREATININE 0.89 mg/dL (0.55-1.30); POTASSIUM 4.2 mmol/L (3.5-5.1)
[2020-09-05 22:57] LABS: INR 0.9 (0.80-1.20); PROTHROMBIN TIME 9.4 SECS (9.5-12.5)
[2020-09-05 23:00] LABS: TOTAL BILIRUBIN 0.2 mg/dL (0.0-1.0)
--- NOTE | 2020-09-05 23:04 | NUR ---
Dr. Figueroa at bedside, spoke with patient, and explain treatment plan.
[2020-09-05 23:12] LABS: BILIRUBIN,URINE NEGATIVE (NEGATIVE); BLOOD, URINE NEGATIVE (NEGATIVE); CLARITY/URINE CLEAR (CLEAR); COLOR,URINE YELLOW (YELLOW); GLUCOSE,URINE NEGATIVE (NEGATIVE); KETONES,URINE NEGATIVE (NEGATIVE); LEUKOCYTE ESTERASE ,URINE NEGATIVE (NEGATIVE); NITRITE, URINE NEGATIVE (NEGATIVE); PROTEIN URINE NEGATIVE (NEGATIVE); UROBILINOGEN,URINE 0.2 (0.2-1.0)
[2020-09-05] MEDS ORDERED: MORPHINE 4 MG INJ. 4 MG/ML VIAL ONE (23:12)
[2020-09-05] MEDS ORDERED: MORPHINE 4 MG INJ. 4 MG/ML VIAL IVP ONE (23:15)
[2020-09-05 23:23] LABS: BARBITURATE, URINE NEGATIVE (NEG <=200); BENZODIAZEPINE, URINE NEGATIVE (NEG <=150); CANNABINOID, URINE NEGATIVE (NEG <=50); COCAINE, URINE NEGATIVE (NEG <=150); METHAMPHETAMINES SCREEN,URINE NEGATIVE (NEG <=500); OPIATE, URINE NEGATIVE (NEG <=100); PHENCYCLIDINE SCREEN,URINE NEGATIVE (NEG <=25); UR TRICYCLIC ANTIDEPRESSANTS NEGATIVE (NEG <=300); URINE AMPHETAMINE NEGATIVE (NEG <=500); URINE METHADONE NEGATIVE (NEG <=200); URINE OXYCODONE SCREEN NEGATIVE (NEG <=100); URINE PROPOXYPHENE SCREEN NEGATIVE (NEG <=300)
--- NOTE | 2020-09-05 23:37 | NUR ---
Patient transported to radiology via gurney, accompanied by refractory technician.
--- NOTE | 2020-09-05 23:40 | NUR ---
Patient came back from CT scan.
--- NOTE | 2020-09-06 00:17 | NUR ---
Patient resting quietly. No acute distress noted. Vital signs within normal range.
[2020-09-06] MEDS ORDERED: LIB25 PO (00:41)
[2020-09-06 00:55] VITALS: BP_SYST 142
--- NOTE | 2020-09-06 00:55 | NUR ---
Patient given written and verbal discharge instructions and verbalizes understanding. ER MD discussed with patient the results and treatment provided. Patient in stable condition. ID arm band removed. IV catheter removed intact and dressing applied, no active bleeding. No Rx given. Patient educated on pain management and to follow up with PMD. Pain Scale 1/10. Opportunity for questions provided and answered.
== END 2020-09-06 00:55 | disposition home or self-care (01) ==
LOC: SED 22:03
DX: F10.129 Alcohol abuse with intoxication, unspecified (principal); R10.9 Unspecified abdominal pain; I10 Essential (primary) hypertension; F41.9 Anxiety disorder, unspecified; Y90.8 Blood alcohol level of 240 mg/100 ml or more; Z79.899 Other long term (current) drug therapy
CPT/HCPCS: 36415; 74176; 76376; 80053; 80307; 81003; 82150; 83690; 85025; 85610; 96361; 96374; 96375; 99284; G0482; J1885; J2270; J7030

== ENCOUNTER 2021-11-24 18:25 | Inpatient (IN) | payer MEDICAID ==
[~2021-11-24] VITALS: Ht 177.8 cm; Wt 93.9 kg
[2021-11-24 18:49] VITALS: BP_SYST 132
--- NOTE | 2021-11-24 19:35 | NUR ---
Patient to ER bed HB1 to gown for evaluation. Side rails up. Report given to Mary WHITE.
--- NOTE | 2021-11-24 19:40 | NUR ---
patient brought in from home complaining of severe burning abdominal pain x 2 days. pain 10/10. patient reports hx of pancreatitis. patient states " I want morphine or diuladid for my pain." informed MD will assess patient's pain and order what is appropriate.
--- NOTE | 2021-11-24 19:58 | NUR ---
# 18 gauge angiocath placed to lac. Use of asceptic technique. Opsite placed over site. Blood return noted. Blood and cultures for lab drawn from site. Flushed with 10 cc of normal saline. No evidence of infiltration noted. Patient tolerated well.
[2021-11-24] MEDS ORDERED: PANTOPRAZOLE SODIUM 40 MG/VIAL (PROTONIX) IVP ONE (20:00)
[2021-11-24] MEDS ORDERED: MORPHINE 4 MG INJ. 4 MG/ML VIAL IVP ONE ×2 (20:00→22:00)
[2021-11-24] MEDS ORDERED: NACL 0.9% 1,000 ML IV ONE (20:00)
[2021-11-24 20:18] LABS: BASOPHILS # (AUTO) 0.1 K/uL (0.0-0.2); BASOPHILS % (AUTO) 1.4 % (0.0-2.0); EOSINOPHILS # (AUTO) 0.1 K/uL (0.0-0.4); EOSINOPHILS % (AUTO) 1.6 % (0.0-4.0); HEMATOCRIT 42.5 % (36-54); HEMOGLOBIN 13.9 g/dL (14.0-18.0); LYMPHOCYTES # (AUTO) 1.7 K/uL (1.0-5.5); LYMPHOCYTES % (AUTO) 37.8 % (20.5-51.5); MEAN CORPUSCULAR HEMOGLOBIN 26 pg (27-31); MEAN CORPUSCULAR HGB CONC 33 % (32-36); MEAN CORPUSCULAR VOLUME 79 fL (79.0-98.0); MONOCYTES # (AUTO) 0.4 K/uL (0.0-1.0); NEUTROPHILS # (AUTO) 2.4 K/uL (1.8-7.7); NEUTROPHILS % (AUTO) 51.2 % (40.0-70.0); PLATELET COUNT (AUTO) 226 K/uL (130-430); RED CELL DISTRIBUTION WIDTH 15.6 % (9.0-15.0); WHITE BLOOD COUNT (AUTO) 4.6 K/uL (4.8-10.8)
[2021-11-24 20:28] LABS: CALCIUM 8.6 mg/dL (8.4-11.0); CREATININE 0.76 mg/dL (0.55-1.30); POTASSIUM 3.8 mmol/L (3.5-5.1)
[2021-11-24 20:43] LABS: ALBUMIN 3.8 g/dL (3.4-4.8); TOTAL BILIRUBIN 0.1 mg/dL (0.0-1.0)
--- NOTE | 2021-11-24 21:00 | NUR ---
patient observed sleeping in [facility]. chest rise and fall noted. vss
[2021-11-24] MEDS ORDERED: NAPR-1172 PO (21:22)
--- NOTE | 2021-11-24 21:48 | NUR ---
Patient standing next to nursing station requesting pain medication. MD ordered Toradol. Patient states " I don't want Toradol, it doesn't do anything for me. If you are not going to admit me, I am going to go home."
[2021-11-24 21:56] LABS: BILIRUBIN,URINE NEGATIVE (NEGATIVE); BLOOD, URINE NEGATIVE (NEGATIVE); CLARITY/URINE CLEAR (CLEAR); COLOR,URINE YELLOW (YELLOW); GLUCOSE,URINE NEGATIVE (NEGATIVE); KETONES,URINE NEGATIVE (NEGATIVE); LEUKOCYTE ESTERASE ,URINE NEGATIVE (NEGATIVE); NITRITE, URINE NEGATIVE (NEGATIVE); PROTEIN URINE NEGATIVE (NEGATIVE); UROBILINOGEN,URINE 0.2 (0.2-1.0)
--- NOTE | 2021-11-24 22:43 | NUR ---
Admit bed requested Patient will be admitted to care of . Admitted to MED SURG unit. Diagnosis ABDOMINAL PAIN Inpatient (Yes or No) N Observation (Yes or No) Orientation concerns or request close to nursing station (Yes or No) N Covid Status - On vent or bipap N Isolation requirements N Needs a sitter N From Home (Yes or if No enter name of facility) Y Requires Dialysis (Yes or No) N Med Rec Completed (Yes of No) Y
--- NOTE | 2021-11-24 22:44 | NUR ---
PATIENT STATES HE IS FULL CODE
--- NOTE | 2021-11-24 23:19 | NUR ---
PATIENT COMPLAINING OF ETOH WITHDRAWAL AND FEELING ANXIOUS. SPOKE TO DR. QUINTANILLA RECEIVED ORDERS FOR LIBRIUM 50 MG PO BID AND ATIVAN 1 MG Q2H PRN ANXIETY.
[2021-11-24] MEDS ORDERED: LORazepam 2 MG/ML VIAL ONE (23:25)
[2021-11-24] MEDS: LORazepam 2 MG/ML VIAL IVP PRN (23:28)
[2021-11-24] MEDS: HYDROmorphone 1 MG/ML INJ. CARTRIDGE IVP PRN (23:29)
[2021-11-24] MEDS: ONDANSETRON HCL 4 MG/2 ML VIAL IVP PRN (23:30)
--- NOTE | 2021-11-24 23:33 | NUR ---
Patient will be admitted to care of Dr. Hussein. Admitted to med surg obs unit. Will go to room 133. Belongings list completed. Complete and up to date summary report printed. SBAR report to be given to CINDY Ventura with opportunity for questions.
[2021-11-24 23:53] VITALS: BP_SYST 123
--- NOTE | 2021-11-25 01:20 | NUR ---
CONSULTATION PAGED/CALLED Reason for Consultation: ABD PAIN Person Who was Notified: LOIS Consulting Physician: CANDELARIA SURESHT DOCTOR SNYDER IS COPY PREPARER Pharmacy Retail Support Specialist Specialty: Ordering Physician: SOCORRO
[2021-11-25] MEDS: LORazepam 2 MG/ML VIAL IVP PRN ×6 (01:44→21:07)
[2021-11-25] MEDS: HYDROmorphone 1 MG/ML INJ. CARTRIDGE IVP PRN ×2 (03:52→08:52)
--- NOTE | 2021-11-25 07:20 | NUR ---
CLOSING NOTES Patient resting in bed - no s/s pain or distress noted. Respirations even and unlabored - head of bed elevated. IV site patent - no s/s redness, infection, or infiltration. Bed locked and in lowest position, call light within reach.
[2021-11-25 08:00] VITALS: BP_SYST 129
--- NOTE | 2021-11-25 08:00 | NUR ---
Initial Notes Patient is AOx4. Ambulatory with steady gait. Patient states abdominal pain. RN notified to administer IVP pain medication. No s.s of distress. Denies SOB. Breathing is even and nonlabored, on room air. Vital signs obtained, as documented. Safety precautions in place and call light within reach.
[2021-11-25] MEDS: PANTOPRAZOLE SODIUM 40 MG/VIAL (PROTONIX) IVP SCH ×2 (08:51→21:06)
[2021-11-25] MEDS: SUCRALFATE 1 GM TABLET PO SCH ×6 (08:51→21:08)
[2021-11-25] MEDS ORDERED: chlordiazePOXIDE HCL 25 MG CAPSULE PO SCH (09:00)
[2021-11-25] MEDS ORDERED: SUCRALFATE 1 GM TABLET PO SCH (09:00)
[2021-11-25] MEDS ORDERED: PANTOPRAZOLE SODIUM 40 MG/VIAL (PROTONIX) IVP SCH (09:00)
[2021-11-25] MEDS ORDERED: FOLIC ACID 1 MG, THIAMINE HCL 100 MG, MAGNESIUM SULFATE 1 GM, MVI 10 ML in NACL 0.9% 1,... IV SCH (11:15)
[2021-11-25] MEDS ORDERED: chlordiazePOXIDE HCL 25 MG CAPSULE PO ONE (11:30)
[2021-11-25] MEDS ORDERED: PANTOPRAZOLE SODIUM 40 MG TAB PO ONE (12:00)
--- NOTE | 2021-11-25 12:00 | NUR ---
Notes Patient resting, eyes closed. No s.s of distress noted. Breathing is even and nonlabored, on room air. Stable. Safety precautions in place and call light within reach.
[2021-11-25 12:35] VITALS: BP_SYST 143; BP_SYST 147
[2021-11-25] MEDS: HYDROcodone/ACETAMIN 5-325 MG TAB (NORCO/ VICODIN) PO PRN ×3 (14:20→21:09)
[2021-11-25] MEDS: chlordiazePOXIDE HCL 25 MG CAPSULE PO SCH ×2 (14:20→21:07)
[2021-11-25] MEDS: LIPASE/PROTEASE/AMYLASE 1 CAP PO SCH ×2 (14:21→18:35)
[2021-11-25] MEDS: FOLIC ACID 1 MG, MVI 10 ML in NACL 0.9% 1,000 ML IV SCH (14:41)
[2021-11-25] MEDS: THIAMINE HCL 100 MG, MAGNESIUM SULFATE 1 GM in NS 100 ML IV SCH (14:41)
--- NOTE | 2021-11-25 16:00 | NUR ---
Notes Patient is stable. No change in assessment. No facial grimace noted. Safety precautions in place and call light within reach.
[2021-11-25 16:41] VITALS: BP_SYST 122; BP_SYST 159
--- NOTE | 2021-11-25 18:50 | NUR ---
Closing Notes Patient is eating dinner. Pain medications given, patient stated abdominal pain. Breathing is even and nonlabored, on room air. IVF running. IV patent. No s.s of distress noted. All needs met. Safety precautions in place and call light within reach. Will endorse care to oncoming nurse.
[2021-11-25 20:00] VITALS: BP_SYST 186
[2021-11-25 21:00] VITALS: BP_SYST 145
--- NOTE | 2021-11-25 21:30 | NUR ---
PATIENT COMPLAIN OF ABD PAIN AND BACK PAIN , ALSO COMPLAIN OF ANXIETY, ATIVAN 1 MG IVP AND NORCO 1 TAB PO GIVEN ORDERED , WILL CONTINUE TO MONITOR.
[2021-11-26] VITALS: BP_SYST 118
[2021-11-26 01:19] VITALS: BP_SYST 117
[2021-11-26] MEDS: LORazepam 2 MG/ML VIAL IVP PRN ×5 (01:54→20:50)
--- NOTE | 2021-11-26 02:00 | NUR ---
PATIENT STATES HE FEELS ANXIOUS AND SHAKING A LITTLE BIT FROM ALCOHOL WITHDRAW , ATIVAN 1 MG IVP GIVEN . WILL CONTINUE TO MONITOR.
[2021-11-26] MEDS: HYDROcodone/ACETAMIN 5-325 MG TAB (NORCO/ VICODIN) PO PRN ×3 (02:14→17:07)
[2021-11-26 08:00] VITALS: BP_SYST 140
[2021-11-26] MEDS: PANTOPRAZOLE SODIUM 40 MG TAB PO SCH (09:11)
[2021-11-26] MEDS: LIPASE/PROTEASE/AMYLASE 1 CAP PO SCH ×3 (09:11→17:07)
[2021-11-26] MEDS: chlordiazePOXIDE HCL 25 MG CAPSULE PO SCH ×3 (09:11→20:48)
[2021-11-26] MEDS: PANTOPRAZOLE SODIUM 40 MG/VIAL (PROTONIX) IVP SCH ×2 (09:13→20:48)
[2021-11-26] MEDS: SUCRALFATE 1 GM TABLET PO SCH ×5 (09:14→20:48)
--- NOTE | 2021-11-26 11:04 | NUR ---
DR. CORDERO AWARE OF PATIENT REQUEST FOR ADDITIONAL PAIN MEDICATION OTHER THAN PRN NORCO. STATED NO NEW ORDERS, PT TO CONTINUE ON CURRENT PRN NORCO. PT AWARE.
[2021-11-26 12:00] VITALS: BP_SYST 135
[2021-11-26] MEDS: THIAMINE HCL 100 MG, MAGNESIUM SULFATE 1 GM in NS 100 ML IV SCH (14:50)
[2021-11-26] MEDS: FOLIC ACID 1 MG, MVI 10 ML in NACL 0.9% 1,000 ML IV SCH (14:51)
[2021-11-26 16:00] VITALS: BP_SYST 137
--- NOTE | 2021-11-26 19:15 | NUR ---
PATIENT RESTING IN BED, AAO x4, NO C/O PAIN/DISCOMFORT AT THIS TIME. RESPIRATIONS EVEN AND UL ON RA. MEDICATED WITH PRN ATIVAN AND PAIN MEDICATION THROUGHOUT SHIFT TO KEEP PT COMFORTABLE. NO SIGNIFICANT CHANGES NOTED. ALL NEEDS MET. BED IN LOWEST POSITION, CALL LIGHT IN REACH, SAFETY MEASURES IN PLACE. ENDORSED TO PM NURSE FOR CONTINUITY OF CARE.
--- NOTE | 2021-11-26 19:30 | NUR ---
Received report from AM shift RN, and assumed patient care.
[2021-11-26 20:00] VITALS: BP_SYST 153
--- NOTE | 2021-11-26 21:04 | NUR ---
Educated the patient about the use of call light, and the plan of care for tonight. Patient understood the teaching and will reinforce if needed throughout the shift. Call light within reach, bed is in lowest position.
--- NOTE | 2021-11-27 00:21 | NUR ---
Patient is currently in bed, asleep. Call light within reach, and bed is in lowest position. No complications noted at the moment, will reinforce if needed throughout the shift.
[2021-11-27 01:03] VITALS: BP_SYST 127
--- NOTE | 2021-11-27 04:30 | NUR ---
Patient is currently in bed asleep, no complications noted at the moment, call light is within reach, and bed is in lowest position. Will reinforce if needed throughout the shift.
[2021-11-27] MEDS: SUCRALFATE 1 GM TABLET PO SCH ×4 (06:50→20:10)
--- NOTE | 2021-11-27 10:30 | NUR ---
iv came out. bleeding noted. clean dressing applied to left ac. no further active bleeding noted. new iv line started on left hand #22. with good blood return. flushed well. no s/s of iv infiltartion noted. primary RN JAZMYN notified.
[2021-11-27] MEDS: HYDROcodone/ACETAMIN 5-325 MG TAB (NORCO/ VICODIN) PO PRN (11:40)
[2021-11-27] MEDS: PANTOPRAZOLE SODIUM 40 MG TAB PO SCH (11:40)
[2021-11-27] MEDS: chlordiazePOXIDE HCL 25 MG CAPSULE PO SCH ×3 (11:41→20:10)
[2021-11-27] MEDS: LIPASE/PROTEASE/AMYLASE 1 CAP PO SCH ×3 (11:41→16:21)
[2021-11-27] MEDS: PANTOPRAZOLE SODIUM 40 MG/VIAL (PROTONIX) IVP SCH ×2 (11:43→20:09)
[2021-11-27 12:00] VITALS: BP_SYST 152
[2021-11-27 16:00] VITALS: BP_SYST 144
[2021-11-27] MEDS: FOLIC ACID 1 MG, MVI 10 ML in NACL 0.9% 1,000 ML IV SCH (16:18)
[2021-11-27] MEDS: THIAMINE HCL 100 MG, MAGNESIUM SULFATE 1 GM in NS 100 ML IV SCH (16:20)
[2021-11-27] MEDS: LORazepam 2 MG/ML VIAL IVP PRN ×2 (18:01→20:11)
--- NOTE | 2021-11-27 19:40 | NUR ---
Received report from AM shift RN, and assumed patient care.
--- NOTE | 2021-11-27 19:55 | NUR ---
Patient requested for anxiety medications, patient feels like he's having an anxiety moment and vitals were taken. No complications noted at the moment, please see emar for further details.
[2021-11-27 20:00] VITALS: BP_SYST 135
--- NOTE | 2021-11-27 20:11 | NUR ---
Patient complained of having anxiety, was not resolved with therapeutic breathing treatments, and therapeutic communication. Anxiety medication now given, please see emar for further details.
--- NOTE | 2021-11-27 23:54 | NUR ---
Found patient in bed asleep, patient had no questions noted at the moment, call light within reach, bed is in lowest position. Will reinforce if needed throughout the shift.
[2021-11-28] VITALS: BP_SYST 133
[2021-11-28] MEDS: LORazepam 2 MG/ML VIAL IVP PRN ×5 (00:33→23:44)
--- NOTE | 2021-11-28 00:33 | NUR ---
Patient complained of having anxiety, was not resolved with therapeutic breathing treatments, and therapeutic communication. Anxiety medication now given, please see emar for further details.
--- NOTE | 2021-11-28 03:55 | NUR ---
Patient is currently in bed and asleep. Patient's call light is within reach, bed is in lowest position. Will reinforce if needed throughout the shift.
[2021-11-28] MEDS: SUCRALFATE 1 GM TABLET PO SCH ×4 (06:10→20:18)
[2021-11-28] MEDS: LIPASE/PROTEASE/AMYLASE 1 CAP PO SCH ×3 (11:09→17:47)
[2021-11-28] MEDS: chlordiazePOXIDE HCL 25 MG CAPSULE PO SCH ×3 (11:10→20:18)
[2021-11-28] MEDS: PANTOPRAZOLE SODIUM 40 MG TAB PO SCH (11:10)
[2021-11-28] MEDS: PANTOPRAZOLE SODIUM 40 MG/VIAL (PROTONIX) IVP SCH ×2 (11:10→20:18)
[2021-11-28 12:00] VITALS: BP_SYST 134
[2021-11-28] MEDS: THIAMINE HCL 100 MG, MAGNESIUM SULFATE 1 GM in NS 100 ML IV SCH (15:38)
[2021-11-28] MEDS: FOLIC ACID 1 MG, MVI 10 ML in NACL 0.9% 1,000 ML IV SCH (15:39)
[2021-11-28 16:00] VITALS: BP_SYST 130
[2021-11-28] MEDS: HYDROcodone/ACETAMIN 5-325 MG TAB (NORCO/ VICODIN) PO PRN (16:23)
--- NOTE | 2021-11-28 19:30 | NUR ---
Received report from AM shift RN, and assumed patient care.
[2021-11-28 20:00] VITALS: BP_SYST 150
--- NOTE | 2021-11-28 20:20 | NUR ---
Patient was educated about the upcoming plan of care, patient understood the teaching and had no questions noted at the moment. Patient states he is having anxiety and that requests for anxiety medications, provided non-pharmacological interventions to prevent anxiety however patient states he still wants the medication, please see emar for further details.
--- NOTE | 2021-11-28 23:44 | NUR ---
Patient was feeling anxious, educated the patient about the patient's situation and the importance of not overmedicating with ativan. However patient understands teaching but still want to continue with getting the medication, please see emar for further details.
[2021-11-29] VITALS: BP_SYST 144
--- NOTE | 2021-11-29 00:10 | NUR ---
Patient is found in bed, watching TV. No complications noted at the moment, call light is within reach, and bed is in lowest position. Will reinforce if needed throughout the shift.
--- NOTE | 2021-11-29 04:35 | NUR ---
Patient was found in bed asleep, no complications noted at the moment. Call light is within reach, bed is in lowest position. Will reinforce if needed throughout the shift.
[2021-11-29] MEDS: SUCRALFATE 1 GM TABLET PO SCH ×4 (06:08→20:22)
[2021-11-29] MEDS: LORazepam 2 MG/ML VIAL IVP PRN ×5 (06:24→21:30)
--- NOTE | 2021-11-29 06:24 | NUR ---
Patient complained of having anxiety, educated the patient about the importance to start tapering off the ativan medication if patient wanted to go home and properly heal. Educated the importance of utilizing other medications that can help with anxiety, and or distractions to help with easing the anxious feelings. However patient is still insisting in getting the ativan medication, despite the education that was provided. Will reinforce education if needed throughout the shift.
[2021-11-29 07:00] LABS: BASOPHILS % (AUTO) 0.8 % (0.0-2.0); EOSINOPHILS # (AUTO) 0.2 K/uL (0.0-0.4); EOSINOPHILS % (AUTO) 3.4 % (0.0-4.0); HEMATOCRIT 38.5 % (36-54); HEMOGLOBIN 12.8 g/dL (14.0-18.0); LYMPHOCYTES # (AUTO) 1.3 K/uL (1.0-5.5); LYMPHOCYTES % (AUTO) 26.6 % (20.5-51.5); MEAN CORPUSCULAR HEMOGLOBIN 26 pg (27-31); MEAN CORPUSCULAR HGB CONC 33 % (32-36); MEAN CORPUSCULAR VOLUME 79 fL (79.0-98.0); MONOCYTES # (AUTO) 0.4 K/uL (0.0-1.0); NEUTROPHILS # (AUTO) 3.1 K/uL (1.8-7.7); NEUTROPHILS % (AUTO) 61.2 % (40.0-70.0); PLATELET COUNT (AUTO) 171 K/uL (130-430); RED BLOOD CELL COUNT(AUTO) 4.85 MIL/uL (4.2-6.2)
[2021-11-29 07:32] VITALS: BP_SYST 135
[2021-11-29 07:33] LABS: ALBUMIN 3.3 g/dL (3.4-4.8); CALCIUM 8.3 mg/dL (8.4-11.0); CREATININE 0.91 mg/dL (0.55-1.30); POTASSIUM 3.7 mmol/L (3.5-5.1); TOTAL BILIRUBIN 0.5 mg/dL (0.0-1.0)
[2021-11-29] MEDS: LIPASE/PROTEASE/AMYLASE 1 CAP PO SCH ×4 (08:41→16:35)
[2021-11-29] MEDS: chlordiazePOXIDE HCL 25 MG CAPSULE PO SCH ×3 (08:42→20:22)
[2021-11-29] MEDS: PANTOPRAZOLE SODIUM 40 MG/VIAL (PROTONIX) IVP SCH ×2 (08:42→20:22)
[2021-11-29] MEDS ORDERED: HYDROcodone/ACETAMIN 5-325 MG TAB (NORCO/ VICODIN) PO PRN (10:30)
[2021-11-29] MEDS ORDERED: MORPHINE 2 MG/ML INJ. SYRINGE IVP PRN (16:15)
[2021-11-29] MEDS ORDERED: NALOXONE HCL 0.4 MG/ML AMP (NARCAN) IVP PRN (16:15)
[2021-11-29] MEDS: ONDANSETRON HCL 4 MG/2 ML VIAL IVP PRN (16:27)
[2021-11-29] MEDS: THIAMINE HCL 100 MG, MAGNESIUM SULFATE 1 GM in NS 100 ML IV SCH (16:36)
[2021-11-29] MEDS: FOLIC ACID 1 MG, MVI 10 ML in NACL 0.9% 1,000 ML IV SCH (16:37)
--- NOTE | 2021-11-29 19:45 | NUR ---
Received report from AM shift RN, and assumed patient care.
[2021-11-29 20:00] VITALS: BP_SYST 128
--- NOTE | 2021-11-29 21:30 | NUR ---
Patient complains of having anxiety, educated the patient about breathing methods however it was not successful due to patient being consistently asking for ativan medication. Despite educating the use of other non-pharmacological interventions, patient still requires to get medication. Please see emar for further details.
--- NOTE | 2021-11-30 00:13 | NUR ---
Patient is seen walking around the unit, no complications noted at the moment. Educated the patient about the importance of safety risk, especially post medication of the ativan. However patient continues to walk around despite the side effects of the medication causing fall risk, no additional complications noted at the moment and will reinforce if needed throughout the shift.
[2021-11-30 00:58] VITALS: BP_SYST 160
[2021-11-30] MEDS: LORazepam 2 MG/ML VIAL IVP PRN ×4 (01:56→17:22)
--- NOTE | 2021-11-30 01:57 | NUR ---
Patient complains of having anxiety, provided non-pharmacological interventions however patient refuses to participate and rather get the anxiety medication, ativan. Educated the patient in order to properly get better is to taper off the medication, patient understands the teaching however continues to request for the medication. Medication given, please see emar for further details. Will reinforce if needed throughout the shift. mortgage funder is aware of the situation.
--- NOTE | 2021-11-30 02:27 | NUR ---
Educated the patient about utilizing the call light if patient is in need of assistance, especially after given anti-anxiety medication that can cause dizziness, and be a risk of falling. Patient states he is aware of the situation, however patient does not comply with the rules of using the call light and still continues to walk around the unit. No signs of weakness while walking upon assessment, however it is still a risk of safety especially after given the ativan medication. sifter operator is aware of the situation, and will continue to reinforce education about the risk of safety.
--- NOTE | 2021-11-30 04:50 | NUR ---
Per pt stated he was ok. No linen or changing needed. Pt is independent.
[2021-11-30] MEDS: SUCRALFATE 1 GM TABLET PO SCH ×4 (06:05→21:00)
--- NOTE | 2021-11-30 07:00 | NUR ---
Report received from shift lab technician RN for continuity of care. Patient stable.
[2021-11-30 07:32] VITALS: BP_SYST 122
[2021-11-30 07:32] LABS: CALCIUM 8.2 mg/dL (8.4-11.0); CREATININE 0.77 mg/dL (0.55-1.30); POTASSIUM 3.9 mmol/L (3.5-5.1)
[2021-11-30 07:41] LABS: BASOPHILS % (AUTO) 0.9 % (0.0-2.0); EOSINOPHILS # (AUTO) 0.2 K/uL (0.0-0.4); EOSINOPHILS % (AUTO) 3.7 % (0.0-4.0); HEMATOCRIT 38.2 % (36-54); HEMOGLOBIN 12.7 g/dL (14.0-18.0); LYMPHOCYTES # (AUTO) 1.2 K/uL (1.0-5.5); MEAN CORPUSCULAR HEMOGLOBIN 27 pg (27-31); MEAN CORPUSCULAR HGB CONC 33 % (32-36); MEAN CORPUSCULAR VOLUME 80 fL (79.0-98.0); MONOCYTES # (AUTO) 0.3 K/uL (0.0-1.0); MONOCYTES % (AUTO) 6.1 % (1.7-9.3); NEUTROPHILS # (AUTO) 3.4 K/uL (1.8-7.7); NEUTROPHILS % (AUTO) 65.3 % (40.0-70.0); PLATELET COUNT (AUTO) 171 K/uL (130-430); RED BLOOD CELL COUNT(AUTO) 4.78 MIL/uL (4.2-6.2); RED CELL DISTRIBUTION WIDTH 15.2 % (9.0-15.0); WHITE BLOOD COUNT (AUTO) 5.2 K/uL (4.8-10.8)
[2021-11-30] MEDS: chlordiazePOXIDE HCL 25 MG CAPSULE PO SCH ×3 (08:53→21:00)
[2021-11-30] MEDS: LIPASE/PROTEASE/AMYLASE 1 CAP PO SCH ×3 (08:53→17:35)
[2021-11-30] MEDS: PANTOPRAZOLE SODIUM 40 MG/VIAL (PROTONIX) IVP SCH ×2 (08:54→21:00)
[2021-11-30 12:00] VITALS: BP_SYST 133
--- NOTE | 2021-11-30 13:32 | NUR ---
Patient appearing restless, walking, pacing asking to speak with Dr. Dr. Hussein paged. Patient said he "wants to go home." Will talk to Dr. Hussein about situation.
[2021-11-30] MEDS ORDERED: NALOXONE HCL 0.4 MG/ML AMP (NARCAN) IVP PRN (14:45)
[2021-11-30] MEDS: MORPHINE 2 MG/ML INJ. SYRINGE IVP PRN ×4 (15:59→23:42)
[2021-11-30 16:00] VITALS: BP_SYST 124
[2021-11-30] MEDS: THIAMINE HCL 100 MG, MAGNESIUM SULFATE 1 GM in NS 100 ML IV SCH (16:25)
[2021-11-30] MEDS: FOLIC ACID 1 MG, MVI 10 ML in NACL 0.9% 1,000 ML IV SCH (16:25)
--- NOTE | 2021-11-30 19:38 | NUR ---
Report given to operation shift supervisor RN for continuity of care. Patient resting at the moment. Patient was able to speak to Dr. Hussein regarding pain meds and antianxiety meds.
[2021-12-01] MEDS: LORazepam 2 MG/ML VIAL IVP PRN ×5 (02:49→23:28)
[2021-12-01] MEDS: MORPHINE 2 MG/ML INJ. SYRINGE IVP PRN ×5 (03:38→22:05)
[2021-12-01] MEDS: SUCRALFATE 1 GM TABLET PO SCH ×4 (06:51→21:05)
[2021-12-01 07:47] VITALS: BP_SYST 142
--- NOTE | 2021-12-01 07:52 | NUR ---
Report received from welder 2nd shift RN for continuity of care. Patient in stable condition. Patient awake and moving around.
[2021-12-01] MEDS: LIPASE/PROTEASE/AMYLASE 1 CAP PO SCH ×3 (08:53→17:00)
[2021-12-01] MEDS: chlordiazePOXIDE HCL 25 MG CAPSULE PO SCH ×3 (08:53→21:04)
[2021-12-01] MEDS: PANTOPRAZOLE SODIUM 40 MG/VIAL (PROTONIX) IVP SCH ×2 (09:00→21:05)
[2021-12-01 12:00] VITALS: BP_SYST 136
[2021-12-01 16:00] VITALS: BP_SYST 124
[2021-12-01] MEDS: FOLIC ACID 1 MG, MVI 10 ML in NACL 0.9% 1,000 ML IV SCH (17:01)
[2021-12-01] MEDS: THIAMINE HCL 100 MG, MAGNESIUM SULFATE 1 GM in NS 100 ML IV SCH (17:01)
[2021-12-01 19:50] VITALS: BP_SYST 143
--- NOTE | 2021-12-01 19:50 | NUR ---
INITIAL NOTE AT INITIAL ASSESSMENT, PATIENT IS DROWSY, RESTING IN BED, STABLE, NO SIGNS OF RESPIRATORY DISTRESS. PATIENT VERBALIZES NO PAIN. PLAN OF CARE FOR THE EVENING IS COMMUNICATED WITH THE PATIENT. BED IS LOCKED, AND AT THE LOWEST LEVEL. FALL, AND SAFETY PRECAUTIONS WILL BE TAKEN THROUGHOUT THE SHIFT.
--- NOTE | 2021-12-01 20:10 | NUR ---
Report given to cnc machinist 2nd shift RN for continuity of care. Patient stable condition. No distress noted.
--- NOTE | 2021-12-01 21:12 | NUR ---
MED PASS / PATIENT REQUEST FOR ATIVAN MED PASS COMPLETED AT THIS TIME; PATIENT IS DROWSY BUT IS REQUEST FOR ATIVAN BECAUSE HE IS "ANXIOUS". WHEN ASKED HIM WHAT IS MAKING HIM ANXIOUS, PATIENT STATED "THE LIGHT YOU TURNED ON". PRN MEDICATION FOR ANXIETY GIVEN AT THIS TIME.
--- NOTE | 2021-12-01 22:05 | NUR ---
PAIN NOTE PATIENT VERBALIZES SEVERE 10/10 PAIN, PATIENT WAS DROWSY AND HAD TO BE WOKEN UP WITHIN THE FEW MINUTES IT TOOK RN TO GET PRN MORPHINE ORDERED. MEDICATION ADMINISTERED PER PATIENT REQUEST.
--- NOTE | 2021-12-01 23:28 | NUR ---
"ANXIETY" NOTE PATIENT DROWSY BUT REQUESTING FOR PRN MEDICATION FOR HIS "ANXIETY". HE IS NOT SHOWING ANY SIGNS OR SYMPTOMS OF ANXIETY. PRN MEDICATION GIVEN PER HIS REQUEST.
[2021-12-02] VITALS: BP_SYST 128
[2021-12-02] MEDS: MORPHINE 2 MG/ML INJ. SYRINGE IVP PRN (02:11)
--- NOTE | 2021-12-02 02:11 | NUR ---
"PAIN" NOTE PATIENT VERBALIZES SEVERE 10/10 PAIN. PATIENT IS DROWSY, AND SHOWS NO SIGNS OF PAIN PER FLACC SCALE. PRN MEDICATION ADMINISTERED AT THIS TIME PER PATIENT REQUEST.
[2021-12-02] MEDS: SUCRALFATE 1 GM TABLET PO SCH ×2 (06:17→11:22)
[2021-12-02 06:33] LABS: BASOPHILS % (AUTO) 0.8 % (0.0-2.0); EOSINOPHILS # (AUTO) 0.2 K/uL (0.0-0.4); HEMATOCRIT 39.1 % (36-54); HEMOGLOBIN 12.8 g/dL (14.0-18.0); LYMPHOCYTES # (AUTO) 1.2 K/uL (1.0-5.5); MEAN CORPUSCULAR HEMOGLOBIN 26 pg (27-31); MEAN CORPUSCULAR HGB CONC 33 % (32-36); MEAN CORPUSCULAR VOLUME 80 fL (79.0-98.0); MONOCYTES # (AUTO) 0.4 K/uL (0.0-1.0); MONOCYTES % (AUTO) 6.6 % (1.7-9.3); NEUTROPHILS # (AUTO) 3.6 K/uL (1.8-7.7); NEUTROPHILS % (AUTO) 66.6 % (40.0-70.0); PLATELET COUNT (AUTO) 164 K/uL (130-430); RED BLOOD CELL COUNT(AUTO) 4.87 MIL/uL (4.2-6.2); RED CELL DISTRIBUTION WIDTH 15.9 % (9.0-15.0); WHITE BLOOD COUNT (AUTO) 5.3 K/uL (4.8-10.8)
--- NOTE | 2021-12-02 06:44 | NUR ---
CLOSING NOTE AT THIS TIME, PATIENT IS RESTING IN BED, STABLE, NO SIGNS OF RESPIRATORY DISTRESS. BED IS LOCKED, ALARMED, AND AT THE LOWEST LEVEL. FALL, SAFETY AND ASPIRATION PRECAUTIONS HAVE BEEN IN PLACE THROUGHOUT THE SHIFT. WILL CONTINUE TO MONITOR UNTIL REPORT IS GIVEN AT BEDSIDE TO AM NURSE.
--- NOTE | 2021-12-02 07:25 | NUR ---
OPENING NOTE PT IN BED, RESTING WITH EVEN AND NON-LABORED BREATHING. IV RUNNING ORDERED. IV SITE REMAIN PATENT AND INTACT. NO S/S OF INFILTRATION OR INFECTION NOTED. BED IS LOCKED AND AT LOW POSITION. DENIES ANY PAIN OR DISCOMFORT. SAFETY PRECAUTION IN PLACED. WILL CONTINUE TO MONITOR.
[2021-12-02 08:00] VITALS: BP_SYST 153
[2021-12-02 08:32] LABS: ALBUMIN 3.6 g/dL (3.4-4.8); CALCIUM 8.7 mg/dL (8.4-11.0); CREATININE 1.05 mg/dL (0.55-1.30); POTASSIUM 3.6 mmol/L (3.5-5.1); TOTAL BILIRUBIN 0.2 mg/dL (0.0-1.0)
[2021-12-02] MEDS: chlordiazePOXIDE HCL 25 MG CAPSULE PO SCH (09:00)
[2021-12-02] MEDS: LIPASE/PROTEASE/AMYLASE 1 CAP PO SCH ×2 (09:21→11:22)
[2021-12-02] MEDS: PANTOPRAZOLE SODIUM 40 MG/VIAL (PROTONIX) IVP SCH (09:21)
--- NOTE | 2021-12-02 10:00 | NUR ---
AMBULATION PT AMBULATES HALLWAY WITH STEADY GAIT.
[2021-12-02 12:00] VITALS: BP_SYST 158
--- NOTE | 2021-12-02 13:30 | NUR ---
D/C PAPER PT WAS TOLD BY TO BE DISCHARGED, BUT NO DISCHARGE ORDER AT THIS TIME. PT IN A HURRY TO GO HOME TO CLINICAL TRIAL HEAD HER DAUGHTER. INFORMED PT TO WAIT FOR DISCHARGE PAPER, BUT REFUSED TO WAIT. PER PATIENT, HE WILL COME BACK FOR DISCHARGE PAPER. DR. QUINTANILLA MADE AWARE. PT A/OX4, STEADY AMBULATION, NO C/O PAIN, IV REMOVED.
[2021-12-02] MEDS ORDERED: LORA-259 PO (13:43)
[2021-12-02 13:58] VITALS: BP_SYST 158
--- NOTE | 2021-12-02 19:00 | NUR ---
PT DID NOT COME BACK TO GET DISCHARGE PAPER.
== END 2021-12-02 13:33 | disposition home or self-care (01) | DRG 282 ==
LOC: SED 18:25 → SMU 22:39 → INTOOBSV 22:39 → SMU 23:31 → OBSVTOIN 11-27 12:10 → SMU 11-29 00:29
PROVIDERS: ADMIT Internal Medicine; ATTEND Internal Medicine
DX: K85.90 Acute pancreatitis without necrosis or infection, unspecified (principal); R65.10 Systemic inflammatory response syndrome (SIRS) of non-infectious origin without acute organ dysfunction; K29.20 Alcoholic gastritis without bleeding; F10.129 Alcohol abuse with intoxication, unspecified; K86.1 Other chronic pancreatitis; F41.9 Anxiety disorder, unspecified; I10 Essential (primary) hypertension; Y90.9 Presence of alcohol in blood, level not specified; Z20.822 Contact with and (suspected) exposure to COVID-19; K59.00 Constipation, unspecified; Z79.899 Other long term (current) drug therapy
CPT/HCPCS: 36415; 76376; 76700-TC; 80048; 80053; 81003; 83690; 85025; 96361; 96374; 96375; 99285; C9113; G0378; G0482; J1170; J2060; J2270; J2405; J3411; J3475; J3490; J7030

== ENCOUNTER 2022-03-08 16:22 | Emergency (ER) | payer MEDICAID ==
[~2022-03-08] VITALS: Ht 170.2 cm; Wt 81.6 kg
[~2022-03-08 16:22] MED LIST changes: +LORA-259 PO; +NAPR-1172 PO
[2022-03-08 16:26] VITALS: BP_SYST 142
--- NOTE | 2022-03-08 16:37 | NUR ---
Pt brought by self, A&O2, pt presents to ER under alcohol influence, states Hx of alcoholism and pancreatitis, c/o abdominal pain , skin pink and warm, cap refill <3, VSS, will cont to monitor.
--- NOTE | 2022-03-08 16:45 | NUR ---
Pt off the unit for CT
[2022-03-08] MEDS ORDERED: KETOROLAC TROMETHAMINE 30 MG VIAL IVP ONE (17:30)
[2022-03-08] MEDS ORDERED: ONDANSETRON HCL 4 MG/2 ML VIAL IVP ONE (17:30)
[2022-03-08] MEDS ORDERED: LORazepam 2 MG/ML VIAL IVP ONE (17:30)
[2022-03-08] MEDS ORDERED: HALOPERIDOL LACTATE 5 MG/ML VIAL IM ONE (17:30)
[2022-03-08 17:49] LABS: BASOPHILS % (AUTO) 0.5 % (0.0-2.0); EOSINOPHILS # (AUTO) 0.2 K/uL (0.0-0.4); EOSINOPHILS % (AUTO) 3.3 % (0.0-4.0); HEMATOCRIT 40.5 % (36-54); HEMOGLOBIN 13.3 g/dL (14.0-18.0); LYMPHOCYTES # (AUTO) 1.3 K/uL (1.0-5.5); LYMPHOCYTES % (AUTO) 27.3 % (20.5-51.5); MEAN CORPUSCULAR HEMOGLOBIN 27 pg (27-31); MEAN CORPUSCULAR HGB CONC 33 % (32-36); MEAN CORPUSCULAR VOLUME 80 fL (79.0-98.0); MONOCYTES # (AUTO) 0.5 K/uL (0.0-1.0); MONOCYTES % (AUTO) 10.3 % (1.7-9.3); NEUTROPHILS # (AUTO) 2.7 K/uL (1.8-7.7); NEUTROPHILS % (AUTO) 58.6 % (40.0-70.0); PLATELET COUNT (AUTO) 186 K/uL (130-430); RED BLOOD CELL COUNT(AUTO) 5.04 MIL/uL (4.2-6.2); RED CELL DISTRIBUTION WIDTH 16.4 % (9.0-15.0); WHITE BLOOD COUNT (AUTO) 4.6 K/uL (4.8-10.8)
[2022-03-08 17:58] LABS: ANION GAP 13 (5-15); CALCIUM 8.5 mg/dL (8.4-11.0); CHLORIDE 106 mmol/L (98-107); CREATININE 0.76 mg/dL (0.55-1.30); GLUCOSE 111 mg/dL (70-99); UREA NITROGEN, BLOOD 8 mg/dL (8-21)
[2022-03-08 18:00] LABS: GFR AFRICAN AMERICAN 136 mL/min (>90)
[2022-03-08 18:05] LABS: ALANINE AMINOTRANSFERASE 21 U/L (12-78); ALBUMIN 3.7 g/dL (3.4-4.8); ALCOHOL, BLOOD 260 mg/dL (<10); ASPARTATE AMINOTRANSFERASE 19 U/L (10-37); TOTAL BILIRUBIN 0.2 mg/dL (0.0-1.0)
[2022-03-08 18:07] LABS: ACETAMINOPHEN < 1 ug/mL (1-30)
[2022-03-08 20:03] VITALS: BP_SYST 132
--- NOTE | 2022-03-08 20:04 | NUR ---
Patient given written and verbal discharge instructions and verbalizes understanding. ER MD discussed with patient the results and treatment provided. Patient in stable condition. ID arm band removed. IV catheter removed intact and dressing applied, no active bleeding.
== END 2022-03-08 20:03 | disposition home or self-care (01) ==
LOC: SED 16:22
DX: F10.129 Alcohol abuse with intoxication, unspecified (principal); R41.82 Altered mental status, unspecified; I10 Essential (primary) hypertension; Z79.899 Other long term (current) drug therapy; Y90.6 Blood alcohol level of 120-199 mg/100 ml
CPT/HCPCS: 99285; 96374; 70450; 96375; 80053; 85025; 84484; 36415; 93005; 76376; G0482; J1630; J2060; J2405; G0480; G0481

== ENCOUNTER 2022-03-10 12:03 | Emergency (ER) | payer MEDICAID ==
[~2022-03-10] VITALS: Ht 180.3 cm; Wt 90.7 kg
[2022-03-10 12:05] VITALS: BP_SYST 150
--- NOTE | 2022-03-10 12:10 | NUR ---
BROUGHT IN BY [facility], TRIAGED. AWAITING ER BED AVAILABILITY
--- NOTE | 2022-03-10 13:15 | NUR ---
PT SCREAMING LOUDLY AT STAFF FOR A BED, PT REMAINS ON GURNEY.
[2022-03-10] MEDS ORDERED: NACL 0.9% 1,000 ML IV ONE (13:30)
[2022-03-10] MEDS ORDERED: FAMOTIDINE PF 20 MG/2 ML VIAL IVP ONE (13:30)
[2022-03-10] MEDS ORDERED: ONDANSETRON HCL 4 MG/2 ML VIAL IVP ONE (13:30)
[2022-03-10] MEDS ORDERED: MORPHINE 4 MG INJ. 4 MG/ML VIAL IM ONE (14:45)
--- NOTE | 2022-03-10 15:49 | NUR ---
Patient does not wish to proceed with medical care recommended by DR RAMON. Patient given information related to possible complications, up to and including , which could occur as a result of leaving hospital at this time. Patient verbalizes understanding of risks involved leaving against medical advice. Patient has signed AMA form.
== END 2022-03-10 15:45 | disposition left against medical advice (07) ==
LOC: SED 12:03
DX: R10.33 Periumbilical pain (principal); R11.10 Vomiting, unspecified; I10 Essential (primary) hypertension; Z79.899 Other long term (current) drug therapy
CPT/HCPCS: 99283; J2270

== ENCOUNTER 2022-09-25 19:56 | Emergency (ER) | payer MEDICAID ==
[~2022-09-25] VITALS: Ht 177.8 cm; Wt 95.3 kg
[2022-09-25 20:08] VITALS: BP_SYST 184; PULSE 116; RESP 18; TEMP 98.8; O2SAT 96
[2022-09-25] MEDS ORDERED: FOLIC ACID 1 MG, THIAMINE HCL 100 MG, MAGNESIUM SULFATE 1 GM, MVI 10 ML in NACL 0.9% 1,... IV ONE (21:00)
[2022-09-25] MEDS ORDERED: ONDANSETRON HCL 4 MG/2 ML VIAL IVP ONE (21:00)
[2022-09-25] MEDS ORDERED: HYDROmorphone 1 MG/ML INJ. CARTRIDGE IVP ONE ×2 (21:00→22:15)
[2022-09-25] MEDS ORDERED: NACL 0.9% 1,000 ML IV ONE (21:00)
[2022-09-25 21:25] LABS: BASOPHILS % (AUTO) 0.7 % (0.0-2.0); EOSINOPHILS # (AUTO) 0.1 K/uL (0.0-0.4); EOSINOPHILS % (AUTO) 2.9 % (0.0-4.0); HEMATOCRIT 40.5 % (36-54); LYMPHOCYTES # (AUTO) 1.4 K/uL (1.0-5.5); LYMPHOCYTES % (AUTO) 28.8 % (20.5-51.5); MEAN CORPUSCULAR HEMOGLOBIN 26 pg (27-31); MEAN CORPUSCULAR HGB CONC 32 % (32-36); MEAN CORPUSCULAR VOLUME 81 fL (79.0-98.0); MONOCYTES # (AUTO) 0.4 K/uL (0.0-1.0); MONOCYTES % (AUTO) 8.1 % (1.7-9.3); NEUTROPHILS % (AUTO) 59.5 % (40.0-70.0); PLATELET COUNT (AUTO) 229 K/uL (130-430); RED BLOOD CELL COUNT(AUTO) 4.99 MIL/uL (4.2-6.2)
[2022-09-25 21:35] LABS: ANION GAP 11 (5-15); CALCIUM 8.3 mg/dL (8.4-11.0); CARBON DIOXIDE 26 mmol/L (23-29); CHLORIDE 105 mmol/L (98-107); CREATININE 0.81 mg/dL (0.55-1.30); GFR AFRICAN AMERICAN 126 mL/min (>90); GLUCOSE 119 mg/dL (74-106); SODIUM SERUM 142 mmol/L (136-145); UREA NITROGEN, BLOOD 7 mg/dL (8-21)
[2022-09-25 21:36] LABS: GFR NON AFRICAN-AMERICAN 104 mL/min (>90)
[2022-09-25 21:46] LABS: ALANINE AMINOTRANSFERASE 24 U/L (12-78); ALBUMIN 3.9 g/dL (3.4-4.8); ALCOHOL, BLOOD 394 mg/dL (<10); ASPARTATE AMINOTRANSFERASE 31 U/L (10-37); LIPASE 236 U/L (73-393); TOTAL BILIRUBIN 0.2 mg/dL (0.0-1.0); TOTAL PROTEIN, SERUM 7.7 g/dL (6.4-8.3)
[2022-09-25 21:56] LABS: BILIRUBIN,URINE NEGATIVE (NEGATIVE); BLOOD, URINE TRACE (NEGATIVE); CLARITY/URINE CLEAR (CLEAR); COLOR,URINE STRAW (YELLOW); GLUCOSE,URINE NEGATIVE (NEGATIVE); KETONES,URINE NEGATIVE (NEGATIVE); LEUKOCYTE ESTERASE ,URINE NEGATIVE (NEGATIVE); NITRITE, URINE NEGATIVE (NEGATIVE); PH,URINE 5.5 (5.0-8.0); PROTEIN URINE NEGATIVE (NEGATIVE); UROBILINOGEN,URINE 0.2 (0.2-1.0)
[2022-09-25 21:57] LABS: BACTERIA,URINE None Seen /HPF (None Seen); MUCUS,URINE None Seen /LPF (None Seen); RBC,URINE 0-3 /HPF (0-3); WBC,URINE NONE SEEN /HPF (0-3)
[2022-09-25] MEDS ORDERED: THIAMINE HCL 100 MG/ML VIAL ONE (22:29)
[2022-09-25] MEDS ORDERED: MVI 10 ML VIAL IV ONE (22:29)
[2022-09-25] MEDS ORDERED: FOLIC ACID 5 MG/ML VIAL IV ONE (22:29)
[2022-09-25] MEDS ORDERED: MAGNESIUM SULFATE 1 GM/2 ML VIAL ONE (22:29)
[2022-09-25] MEDS ORDERED: KETOROLAC TROMETHAMINE 30 MG VIAL IVP ONE ×2 (22:45)
[2022-09-26 00:36] VITALS: BP_SYST 139; PULSE 109; RESP 12; TEMP 98.1; O2SAT 95
[2022-09-26 02:12] LABS: BENZODIAZEPINE, URINE POSITIVE (NEG <=150)
[2022-09-26 02:13] LABS: BARBITURATE, URINE NEGATIVE (NEG <=200); CANNABINOID, URINE NEGATIVE (NEG <=50); COCAINE, URINE NEGATIVE (NEG <=150); METHAMPHETAMINES SCREEN,URINE NEGATIVE (NEG <=500); OPIATE, URINE NEGATIVE (NEG <=100); PHENCYCLIDINE SCREEN,URINE NEGATIVE (NEG <=25); UR TRICYCLIC ANTIDEPRESSANTS NEGATIVE (NEG <=300); URINE AMPHETAMINE NEGATIVE (NEG <=500); URINE METHADONE NEGATIVE (NEG <=200); URINE OXYCODONE SCREEN NEGATIVE (NEG <=100); URINE PROPOXYPHENE SCREEN NEGATIVE (NEG <=300)
== END 2022-09-26 00:37 | disposition left against medical advice (07) ==
LOC: SED 19:56
DX: F10.129 Alcohol abuse with intoxication, unspecified (principal); R10.10 Upper abdominal pain, unspecified; I10 Essential (primary) hypertension; Z79.899 Other long term (current) drug therapy; Y90.6 Blood alcohol level of 120-199 mg/100 ml
CPT/HCPCS: 99285; 74176; 96374; 96375; 80307; 80053; 83690; 85025; 84484; 36415; 93005; 76376; 81000; J3490; J3475; J2405; J3411; J1170; G0482